=== PATIENT | male | born 1940 | race Caucasian/White ===

== ENCOUNTER 2016-10-02 22:46 | Observation (INO) | payer MEDICARE, MEDICAID ==
[2016-10-02 22:46] VITALS: BMI 28.3
[2016-10-02 23:42] LABS: BASO # 0.1 K/uL (0.0-0.2); BASO % 1.3 % (0.0-2.0); EOS # 0.2 K/uL (0.0-0.7); EOS % 2.2 % (0.0-4.0); HEMATOCRIT 45.7 % (35.0-51.0); LYMPH # 1.7 K/uL (1.0-4.3); LYMPH % 24.1 % (20.0-40.0); MEAN CELL VOLUME 90.2 fL (80.0-94.0); MEAN CORPUSCULAR HGB CONC 33.3 g/dL (33.0-37.0); MEAN PLATELET VOLUME 9.3 fL (7.2-11.7); MONO # 0.5 K/uL (0.0-0.8); MONO % 7.5 % (0.0-10.0); NRBC % 0.1 % (0.0-2.0); RED CELL DISTRIBUTION WIDTH 14.2 % (11.5-14.5)
[2016-10-02 23:50] LABS: CHLORIDE 94 mmol/L (98-107); POTASSIUM 4.4 mmol/L (3.6-5.2); SODIUM 130 mmol/L (132-148)
[2016-10-02 23:52] LABS: ALB/GLOB RATIO 1.4 (1.0-2.1); AST/SGOT 35 U/L (17-59); BILIRUBIN,TOTAL 0.9 mg/dL (0.2-1.3); CARBON DIOXIDE 20 mmol/L (22-30); GFR AFRICAN-AMERICAN > 60; TOTAL PROTEIN 7.2 g/dL (6.3-8.3)
[2016-10-02 23:53] LABS: ALKALINE PHOSPHATASE 61 U/L (38-126); ALT/SGPT 27 U/L (21-72); BLOOD UREA NITROGEN 9 mg/dL (9-20); CALCIUM 8.5 mg/dl (8.6-10.4); GLUCOSE,RANDOM 115 mg/dL (75-110)
--- NOTE | 2016-10-03 00:08 | C.PDOC ---
History Of Present Illness A 76 y/o M presents to the ER for a seizure that occurred today. Patient was at home where he loss his balanced and fell from a standing position with a contusion to left face. Then had a 5 min brief seizure with normal post ictal. EMS arrived and gave Ativan 2mg IV. Denies fever, chills, visual changes, weakness, numbness, or any other complaints. Time Seen by Provider: 10/02/16 23:23 Chief Complaint (Nursing): Seizure History Per: Patient History/Exam Limitations: no limitations Recent Seizure Activity Began: Just Before Arrival Number Of Seizures: One Length Of Seizures (Duration): Unknown (5min) Quality Of Seizure: Generalized Precipitating Factor(s): Recent Head Trauma (Fell and hit his head) Associated Symptoms: Injury As A Result Of Seizure Activity Post-ictal Period: Duration In Mins: (5min) Severity: Mild Recent travel outside of the [place]: No Additional History Per: Patient Past Medical History Reviewed: Historical Data, Nursing Documentation, Vital Signs Vital Signs: Last Vital Signs Temp Pulse 116 H 10/02/16 23:00 Resp 20 10/02/16 23:00 BP 123/88 10/02/16 23:00 Pulse Ox 100 10/03/16 01:16 - Medical History PMH: CVA, Gastritis, HTN, Hypercholesterolemia, Seizures, TIA Denies: Dementia, Chronic Kidney Disease Family History: States: Unknown Family Hx - Social History Hx Tobacco Use: No Hx Alcohol Use: No Hx Substance Use: No - Immunization History Hx Tetanus Toxoid Vaccination: No Hx Influenza Vaccination: No Hx Pneumococcal Vaccination: No Review Of Systems Except As Marked, All Systems Reviewed And Found Negative. Constitutional: Negative for: Fever, Chills Eyes: Negative for: Vision Change Skin: Positive for: Bruising (Contusions to the left face) Neurological: Positive for: Seizures. Negative for: Weakness, Numbness Physical Exam - Physical Exam Appears: Non-toxic, No Acute Distress Skin: Warm, Dry Head: Normacephalic, Abrasion (Small contusions to the left maxillary process) Eye(s): bilateral: Normal Inspection, PERRL, EOMI Cardiovascular: Rhythm Regular Respiratory: Normal Breath Sounds, No Rales, No Rhonchi, No Wheezing Neurological/Psych: Oriented x3, Normal Speech, Normal Cognition, Normal Cranial Nerves, Normal Motor, Normal Sensation, Other (No focal deficit) ED Course And Treatment - Laboratory Results Result Diagrams: 10/02/16 23:36 10/02/16 23:36 Lab Interpretation: Abnormal (mild hyponatremia) O2 Sat by Pulse Oximetry: 100 (RA) Pulse Ox Interpretation: Normal - Radiology CXR: Interpreted by Me CXR Interpretation: Yes: No Acute Disease - Other Rad head CT X-Ray: Interpreted by Me, Read By Radiologist (no acute findings) max/face X-Ray: Read By Radiologist (no acute findings/fx's) Reevaluation Time: 00:52 Reassessment Condition: Improved - Physician Consult Information Outcome Of Conversation: [id number]: d/w Dr. Kwan- PMD- ok to med/surg Obs Medical Decision Making Medical Decision Making: Impression: A 76 y/o M presents to the ER for a seizure that occurred today. Plans: * EKG * CXR * IV fluids * UA * NPO diet * Reassess typical seizure after a minor fall with L facial contusion Hypersomnolent vs post-ictal exacerbated by Ativan 2 mg IV by EMS/Paramedics makes for unsafe d/c as he is elderly and unstable gait, ok to Obs 00:05. Discussed case with Dr. Kwan and will admit pt. Disposition Doctor Will See Patient In The: Hospital Counseled Patient/Family Regarding: Studies Performed, Diagnosis - Disposition Disposition: HOSPITALIZED Disposition Time: 00:54 Condition: GOOD Forms: [facility] (Kyrgyz) - Clinical Impression Clinical Impression: Seizure, Fall, Facial contusion - Scribe Statement The provider has reviewed the documentation as recorded by the Ritaibanna hall All medical record entries made by the Ritaibanna were at my direction and personally dictated by me. I have reviewed the chart and agree that the record accurately reflects my personal performance of the history, physical exam, medical decision making, and the department course for this patient. I have also personally directed, reviewed, and agree with the discharge instructions and disposition.
[2016-10-03] MEDS: Sodium Chloride 0.45% 1,000 ML IV SCH ×2 (00:19→13:54)
--- NOTE | 2016-10-03 00:24 | CT ---
EXAM: CT Head Without Intravenous Contrast CLINICAL HISTORY: 76 years old, male; Pain; Headache and other: Weakness; Patient HX: 01-06-16; Additional info: Seizure after fall with l head contusion TECHNIQUE: Axial computed tomography images of the head/brain without intravenous contrast. All CT scans at this facility use one or more dose reduction techniques, viz.: automated exposure control; ma/kV adjustment per patient size (including targeted exams where dose is matched to indication; i.e. head); or iterative reconstruction technique. COMPARISON: CT - HEAD W/O CONTRAST 05/19/2015 8:55:45 PM FINDINGS: Brain: Mild atrophy. No intracranial hemorrhage. No mass. Minimal decreased attenuation within periventricular white matter. No definite edema. Ventricles: Mild dilatation occipital horn of RIGHT ventricle, stable. Bones/joints: No calvarial fracture. Mastoid air cells: No mastoid effusion. IMPRESSION: 1. No intracranial hemorrhage. 2. Nonspecific white matter changes. 3. See facial bone CT report for additional details. 4. Incidental/non-acute findings are described above.
--- NOTE | 2016-10-03 00:29 | CT ---
EXAM: CT Maxillofacial Without Intravenous Contrast CLINICAL HISTORY: 76 years old, male; Pain; Face pain and headache; Additional info: L max ? , fall from standing TECHNIQUE: Axial computed tomography images of the face without intravenous contrast. All CT scans at this facility use one or more dose reduction techniques, viz.: automated exposure control; ma/kV adjustment per patient size (including targeted exams where dose is matched to indication; i.e. head); or iterative reconstruction technique. Coronal and sagittal reformatted images were created and reviewed. COMPARISON: CT - HEAD W/O CONTRAST 05/19/2015 8:55:45 PM FINDINGS: Bones/joints: Degenerative changes of cervical spine. No acute fracture. Soft tissues: LEFT maxillary soft tissue swelling. Orbits: Unremarkable as visualized. Sinuses: Scattered minimal mucosal thickening of ethmoid sinuses. Mild focal mucosal thickening/retention cysts of maxillary sinuses. No air-fluid levels. IMPRESSION: 1. No fracture. 2. Incidental/non-acute findings are described above.
[2016-10-03] MEDS ORDERED: Sodium Chloride 0.45% 1,000 ML IV ONE (00:41)
[2016-10-03 03:05] LABS: RBC URINE 3 /hpf (0-3); URINE BILIRUBIN NEGATIVE (NEGATIVE); URINE BLOOD TRACE (NEGATIVE); URINE COLOR Yellow (YELLOW); URINE GLUCOSE (UA) NORMAL (Normal); URINE KETONE NEGATIVE (NEGATIVE); URINE LEUKOCYTE ESTERASE NEG Leu/uL (Negative); URINE PROTEIN NEGATIVE (NEGATIVE); URINE UROBILINOGEN NORMAL mg/dL (0.2-1.0); WBC URINE 1 /hpf (0-5)
--- NOTE | 2016-10-03 08:12 | RAD ---
PROCEDURE: CHEST RADIOGRAPH, 1 VIEW HISTORY: Seizure COMPARISON: Comparison is made to 01/06/2016 FINDINGS: LUNGS: Left lung base small heterogeneous opacity may represent atelectasis. Otherwise no significant interval change. PLEURA: No pneumothorax or pleural fluid seen. CARDIOVASCULAR: Normal. OSSEOUS STRUCTURES: No significant abnormalities. VISUALIZED UPPER ABDOMEN: Normal. OTHER FINDINGS: None. IMPRESSION: Left lung base opacity may represent atelectasis. Otherwise no interval change since the previous exam.
--- NOTE | 2016-10-03 08:42 | CP.PCM.CON ---
History of Present Illness - History of Present Illness History of Present Illness: CONSULT DICTATED BREAK THROUGH SEIZURES ADDED LAMICTAL ON SLOW TITRATION KEEP KEPPRA SAME DOSE NOW. DISCUSSED WITH HIS FAMILY IN DETAIL IF CLINICALLY STABLE DISCHARGE HIM AN DI WILL FOLLOW HIM AN OP I WILL DO AMBULATORY VIDEO EEG AND TITRATE THE MEDICATION Past Patient History - Infectious Disease Hx of Infectious Diseases: None - Tetanus Immunizations Tetanus Immunization: Unknown - Past Medical History & Family History Past Medical History?: Yes - Past Social History Smoking Status: Former Smoker - CARDIAC Hx Hypercholesterolemia: Yes Hx Hypertension: Yes - PULMONARY Hx Respiratory Disorders: No - NEUROLOGICAL Hx Dementia: No Hx Seizures: Yes Hx Transient Ischemic Attacks (TIA): Yes - HEENT Hx HEENT Problems: No - RENAL Hx Chronic Kidney Disease: No - ENDOCRINE/METABOLIC Hx Endocrine Disorders: No - HEMATOLOGICAL/ONCOLOGICAL Hx Blood Disorders: No - INTEGUMENTARY Hx Dermatological Problems: No - MUSCULOSKELETAL/RHEUMATOLOGICAL Hx Musculoskeletal Disorders: Yes Hx Falls: No - GASTROINTESTINAL Hx Gastritis: Yes - GENITOURINARY/GYNECOLOGICAL Hx Genitourinary Disorders: No - PSYCHIATRIC Hx Substance Use: No - SURGICAL HISTORY Hx Surgeries: No - ANESTHESIA Hx Anesthesia: No Meds Allergies/Adverse Reactions: Allergies Allergy/AdvReac Type Severity Reaction Status Date / Time No Known Allergies Allergy Verified 01/06/16 16:46 - Medications Medications: Current Medications Sodium Chloride (Sodium Chloride 0.45%) 1,000 mls @ 80 mls/hr IV .[id number] [facility] Last Admin: 10/03/16 00:19 Dose: 80 mls/hr Lamotrigine (Lamictal) 25 mg PO BID [facility] Results - Vital Signs Recent Vital Signs: Last Vital Signs Temp 97.7 F 10/03/16 08:04 Pulse 71 10/03/16 08:04 Resp 20 10/03/16 08:04 BP 116/73 10/03/16 08:04 Pulse Ox 95 10/03/16 08:04 - Labs Result Diagrams: 10/02/16 23:36 10/02/16 23:36
--- NOTE | 2016-10-03 13:44 | CP.PCM.HP ---
History of Present Illness - History of Present Illness History of Present Illness: COMPREHENSIVE HISTORY & PHYSICAL EXAM HPI A 76 y/o M presents to the ER for a seizure that occurred today. Patient was at home where he loss his balanced and fell from a standing position with a contusion to left face. Then had a 5 min brief seizure with normal post ictal. EMS arrived and gave Ativan 2mg IV. Denies fever, chills, visual changes, weakness, numbness, or any other complaints. PAST HIST. SEIZURES AND HTN PERSONAL HIST: Smoking. N Alcohol. N Allergy N Travel_- . FAMILY HIST : ROS : Constitutional: Negative for weight change, chills, night sweats Eyes: Negative for redness, swelling, itching, discharge, vision changes, blurry vision, double vision, glaucoma, cataracts, Ears: Negative for hearing loss, ringing, , tinnitus, vertigo Nose: Negative for rhinorrhea, stuffiness, sniffing, itching, postnasal drip, discoloration, nasal congestion and epistaxis. Throat: Negative for throat clearing, sore throat, hoarseness, difficulty swallowing and difficulty speaking. Respiratory: Negative for cough, , sputum production, chest tightness, wheezing, pleuritic chest pain ,daytime somnolence, chronic cough, hemoptysis, snoring at night, Cardiovascular: Negative for chest pain, palpitations, orthopnea, PND, Edema of legs, leg cramps, angina, claudication, , irregular heartbeat, Neurology: Negative for irritability, muscle weakness, numbness and tingling, seizures, tremors, migraines, slurred speech, syncope, memory loss, mood changes , recurrent headaches Gastrointestinal: Negative for difficulty swallowing, diarrhea, constipation, black stools, rectal bleeding, nausea, flatulence, reflux, poor appetite, changes in bowel habits, abdominal pain Genitourinary: Negative for frequent urination, hematuria, discharge, incontinence, urinary retention, frequent UTI, Psychiatric: Negative for depression, anxiety/panic, suicidal tendencies, Musculoskeletal: Negative for swollen joints, back pain, , neck pain, morning stiffness of joints, . Skin: Negative for rash, ulcers, itching, dry skin and pigmented lesions. P/E: Constitutional: Appears stated age and in no apparent distress. Head: Normocephalic. Ears: External ear canals patent without inflammation. Tympanic membranes intact with normal light reflex and landmark. Eyes: Pupils are central, bilaterally equal, symmetrical and reacts to light with normal movements and no icterus or pallor. Nose: External nares are patent. Mucosa is pink Mouth-Throat: Good general appearance and condition. No post-pharyngeal/oropharyngeal erythema and tonsillar hypertrophy. Good dental hygiene. Neck-Lymphatic: Neck is supple with normal ROM, no thyromegaly, lymph nodes or masses. JVD is normal with no carotid bruit. Lungs: Clear to percussion and auscultation with bilateral normal air entry. Cardiovascular: S1 and S2 are normal with no murmurs, gallops and rub. GI Exam: No hepatomegaly. Abdomen is soft and non-tender. No Organomegaly , masses or hernias are evident and bowel sounds are normal and active. Neurology: Higher function and all cranial nerves intact, with no gross motor or sensory deficit. Superficial and deep reflexes are normal with downwards planters. No cerebellar deficit with normal gait. Musculoskeletal: No tender spots with normal curvature of the spine with no swelling or restricted ROM of the small and large joints. Extremities: Homans sign absent. Intact pulses with no pitting edema, calf tenderness or skin color changes. Skin: No rash, eruptions or abnormal skin pigmentation LAB/RADIOLOGY: ASSESMENT : RECURRENT BREAK THROGH SEAIZURES HTN PLAN: SEE ORDERS Present on Admission - Present on Admission Any Indicators Present on Admission: No Past Patient History - Infectious Disease Hx of Infectious Diseases: None - Tetanus Immunizations Tetanus Immunization: Unknown - Past Medical History & Family History Past Medical History?: Yes - Past Social History Smoking Status: Former Smoker - CARDIAC Hx Hypercholesterolemia: Yes Hx Hypertension: Yes - PULMONARY Hx Respiratory Disorders: No - NEUROLOGICAL Hx Dementia: No Hx Seizures: Yes Hx Transient Ischemic Attacks (TIA): Yes - HEENT Hx HEENT Problems: No - RENAL Hx Chronic Kidney Disease: No - ENDOCRINE/METABOLIC Hx Endocrine Disorders: No - HEMATOLOGICAL/ONCOLOGICAL Hx Blood Disorders: No - INTEGUMENTARY Hx Dermatological Problems: No - MUSCULOSKELETAL/RHEUMATOLOGICAL Hx Musculoskeletal Disorders: Yes Hx Falls: No - GASTROINTESTINAL Hx Gastritis: Yes - GENITOURINARY/GYNECOLOGICAL Hx Genitourinary Disorders: No - PSYCHIATRIC Hx Substance Use: No - SURGICAL HISTORY Hx Surgeries: No - ANESTHESIA Hx Anesthesia: No Meds Allergies/Adverse Reactions: Allergies Allergy/AdvReac Type Severity Reaction Status Date / Time No Known Allergies Allergy Verified 01/06/16 16:46 Results - Vital Signs Recent Vital Signs: Last Vital Signs Temp 97.7 F 10/03/16 08:04 Pulse 86 10/03/16 10:09 Resp 20 10/03/16 08:04 BP 122/70 10/03/16 10:09 Pulse Ox 95 10/03/16 08:04 - Labs Result Diagrams: 10/02/16 23:36 10/02/16 23:36
--- NOTE | 2016-10-03 21:21 | CON ---
NEUROLOGY CONSULTATION DATE: REASON FOR THE CONSULTATION: Seizures and history of head trauma. CHIEF COMPLAINT: The patient was brought in to [facility] Emergency Room by his family members with a history of fall at home with seizures. From a neurological point of view, I was called in to evaluate him for further management. HISTORY OF PRESENT ILLNESS: Mr. Sherley Mancia is a 76-year-old right-handed man who is known to me for his dementia related stroke and seizures in the past, had been titrated with medication Keppra, being doing well. Still he has been having recurrent seizures, at least once in four months. He recently visited [facility], had few seizures, had been just on medications. Multiple medications were added while he was in [facility]. His seizure are related to his jet lag and his emotional component. At present, he has been taking Keppra 1000 mg three times a day and seizure has been controlled. Last night, he woke up around 10 o'clock from his bed. He felt confused and he landed on the floor hitting his head on his left side. He had witnessed seizure activities from the fall. The patient was brought in to [facility]. He regained his consciousness here and he is back to his baseline the time he was brought in to the hospital. PAST MEDICAL HISTORY: Hypertension, hypercholesterol and dementia. PERSONAL HISTORY: Denies smoking or alcohol use. CURRENT MEDICATION: Losartan and rosuvastatin. REVIEW OF SYSTEMS: A 12-point systems being reviewed. From neurological point, the patient does have seizures and dementia. PHYSICAL EXAMINATION: VITAL SIGNS: Blood pressure 116/73 with mean arterial pressure of 87, respiratory rate is 16, and temperature is 97.7. NECK: Supple. No carotid bruits. HEART: Sounds are regular. CHEST: Fair air entry. EXTREMITIES: No edema in the legs. NEUROLOGIC EXAMINATION: MENTAL STATUS EXAMINATION: He is awake, alert, and oriented to person, place, and time. He is confused. He follows 1 to 2-step command. No right and left confusion with his language. CRANIAL NERVE EXAMINATION: Visual field intact. Pupils reactive to light. Extraocular movement normal. No nystagmus. No facial or sensory deficit. No facial asymmetry. Hearing is normal. MOTOR EXAMINATION: He could able to lift both upper extremities against gravity. Deep tendon reflexes are absent. Plantars are downgoing. SENSORY EXAMINATION: Grossly intact. DIAGNOSTIC DATA: CT of the head reviewed showed diffuse atrophy, not proportionate to his age and focal asymmetry over his right parieto-occipital region consistent with his old stroke and encephalomalacia. EKG normal sinus rhythm. LABORATORY DATA: Blood workup: WBC 7.4, hemoglobin 15.3, hematocrit 45.7, and platelet 161. Sodium 130, potassium 4.4, chloride of 94, bicarbonate is 90, BUN 9, creatinine is 0.8, GFR more than 60, glucose 115, and calcium 8.5. Liver functions are normal. Urine shows trace blood. CONCLUSION: Upon reviewing his history and neurological examination, Mr. Sherley Mancia has been presenting with breakthrough seizures. This is probably multifactorial. The current examination, he is back to his baseline. Considering his recurrent seizures, at this point I would like to add on lamotrigine 25 mg twice a day and the dose can be slowly increased as he tolerates, that can be done as outpatient. I would like to keep his Keppra the way he is taking at present. If the patient is medically stable, the patient can be discharged and can be followed with me as an outpatient. I would like to schedule him for ambulatory video-encephalogram that can be done as outpatient to help. The patient's condition made well. Discussed with his family members, his two sons as well as his . The patient will be followed closely while he is in the hospital. Ajit Del Valle MD
[2016-10-04 07:55] VITALS: RESP 19; TEMP 97.8; O2SAT 96
[2016-10-04 11:41] LABS: BASO % 0.8 % (0.0-2.0); EOS # 0.1 K/uL (0.0-0.7); EOS % 2.5 % (0.0-4.0); HEMATOCRIT 46.2 % (35.0-51.0); LYMPH # 1.4 K/uL (1.0-4.3); LYMPH % 24.4 % (20.0-40.0); MEAN CELL VOLUME 89.9 fL (80.0-94.0); MEAN CORPUSCULAR HEMOGLOBIN 29.7 pg (27.0-31.0); MONO # 0.6 K/uL (0.0-0.8); MONO % 9.7 % (0.0-10.0); RED CELL DISTRIBUTION WIDTH 14.4 % (11.5-14.5); WHITE BLOOD COUNT 5.8 K/uL (4.8-10.8)
[2016-10-04 11:56] LABS: CHLORIDE 98 mmol/L (98-107); POTASSIUM 4.1 mmol/L (3.6-5.2); SODIUM 135 mmol/L (132-148)
[2016-10-04 11:59] LABS: BLOOD UREA NITROGEN 7 mg/dL (9-20); CARBON DIOXIDE 28 mmol/L (22-30); GFR AFRICAN-AMERICAN > 60; GLUCOSE,RANDOM 94 mg/dL (75-110)
[2016-10-04 12:00] LABS: CALCIUM 8.8 mg/dl (8.6-10.4)
--- NOTE | 2016-10-04 12:11 | PN ---
DATE: 10/04/2016 NEUROLOGIC PROBLEM: Breakthrough seizures. Vital Signs: Blood pressure 108/76, mean arterial pressure of 84, respiratory rate 16, temperature 98.3, and pulse rate 66. The patient slept good. The patient is seen with the family members. Some discomfort in his stomach, otherwise he is normal, he feels good. Examination is unchanged to compare with my previous examination. The patient is tolerating a new added medication lamotrigine. The patient can go home with Keppra 1000 mg 3 times a day with lamotrigine 25 mg twice a day. If medically stable, the patient can be discharged. He is advised to come and see me as a followup visit for his ambulatory video electroencephalogram. At that time, I would titrate the lamotrigine to keep the therapeutic dose and probably I will bring down the dose of Keppra. When medically stable, the patient can be discharged. Ajit Del Valle MD
--- NOTE | 2016-10-04 13:41 | CP.PCM.PN ---
Subjective - Date & Time of Evaluation Date of Evaluation: 10/04/16 Time of Evaluation: 13:00 - Subjective Subjective: Pt seen today, states feels better, denies any headache, dizziness, palpitations , sob, N/V/D no further seizure activity sice admission No overnight events reported by RN seen by Dr. Del Valle, today, cleared for discharge home today from neurology stand point Objective - Vital Signs/Intake and Output Vital Signs (last 24 hours): Temp Pulse Resp BP Pulse Ox 97.8 F 74 19 107/72 96 10/04/16 07:54 10/04/16 07:54 10/04/16 07:54 10/04/16 07:54 10/04/16 07:54 Intake and Output: 10/04/16 10/04/16 06:59 18:59 Intake Total 750 Balance 750 - Medications Medications: Current Medications Lamotrigine (Lamictal) 25 mg PO BID [facility] Last Admin: 10/04/16 10:04 Dose: 25 mg Levetiracetam (Keppra) 1,000 mg PO TID [facility] Last Admin: 10/04/16 10:04 Dose: 1,000 mg Losartan Potassium (Cozaar) 25 mg PO DAILY [facility] Last Admin: 10/04/16 10:03 Dose: 25 mg Pneumococcal Polyvalent Vaccine (Pneumovax 23 Vaccine) 0.5 ml IM .ONCE ONE Stop: 10/05/16 10:46 Rosuvastatin Calcium (Crestor) 10 mg PO HS [facility] Last Admin: 10/03/16 21:44 Dose: 10 mg - Labs Labs: 10/04/16 11:30 10/04/16 11:30 - Constitutional Appears: Well, No Acute Distress - Respiratory Exam Respiratory Exam: Clear to Ausculation Bilateral, NORMAL BREATHING PATTERN - Cardiovascular Exam Cardiovascular Exam: REGULAR RHYTHM, +S1, +S2 - Neurological Exam Neurological Exam: Alert, Awake, Normal Gait, Oriented x3 Assessment and Plan - Assessment and Plan (Free Text) Assessment: A/P 76 yr old male admitted for Seizure,s/p Fall, with Facial contusion no further seizure episode since admission D/w Dr. Kwan , stable for discharge home today and f/u [facility] Dr. Blank office in 1 week Discharge plan discussed with patient and family, who understands and agrees with plan pt instructed to returns to ED/ or call Dr. Blank , if symptoms returns or any other concerning symptoms
--- NOTE | 2016-10-04 14:12 | CP.PCM.DIS ---
Provider - Provider Date of Admission: 10/03/16 00:55 Attending physician: aVnessa Kwan MD Time Spent in preparation of Discharge (in minutes): 30 Hospital Course - Lab Results Lab Results: Most Recent Lab Values WBC 5.8 K/uL (4.8-10.8) 10/04/16 11:30 RBC 5.14 Mil/uL (4.40-5.90) 10/04/16 11:30 Hgb 15.3 g/dL (12.0-18.0) 10/04/16 11:30 Hct 46.2 % (35.0-51.0) 10/04/16 11:30 MCV 89.9 fL (80.0-94.0) 10/04/16 11:30 MCH 29.7 pg (27.0-31.0) 10/04/16 11:30 MCHC 33.0 g/dL (33.0-37.0) 10/04/16 11:30 RDW 14.4 % (11.5-14.5) 10/04/16 11:30 Plt Count 160 K/uL (130-400) 10/04/16 11:30 MPV 9.0 fL (7.2-11.7) 10/04/16 11:30 Neut % (Auto) 62.6 % (50.0-75.0) 10/04/16 11:30 Lymph % (Auto) 24.4 % (20.0-40.0) 10/04/16 11:30 [place] % (Auto) 9.7 % (0.0-10.0) 10/04/16 11:30 Eos % (Auto) 2.5 % (0.0-4.0) 10/04/16 11:30 Baso % (Auto) 0.8 % (0.0-2.0) 10/04/16 11:30 Neut # 3.6 K/uL (1.8-7.0) 10/04/16 11:30 Lymph # 1.4 K/uL (1.0-4.3) 10/04/16 11:30 [place] # 0.6 K/uL (0.0-0.8) 10/04/16 11:30 Eos # 0.1 K/uL (0.0-0.7) 10/04/16 11:30 Baso # 0.0 K/uL (0.0-0.2) 10/04/16 11:30 Sodium 135 mmol/L (132-148) 10/04/16 11:30 Potassium 4.1 mmol/L (3.6-5.2) 10/04/16 11:30 Chloride 98 mmol/L (98-107) 10/04/16 11:30 Carbon Dioxide 28 mmol/L (22-30) 10/04/16 11:30 Anion Gap 13 (10-20) 10/04/16 11:30 BUN 7 mg/dL (9-20) L 10/04/16 11:30 Creatinine 0.8 MG/DL (0.8-1.5) 10/04/16 11:30 Est GFR ( Amer) > 60 10/04/16 11:30 Est GFR (Non-Af Amer) > 60 10/04/16 11:30 POC Glucose (mg/dL) 104 mg/dL (65-110) 10/04/16 11:40 Random Glucose 94 mg/dL (75-110) 10/04/16 11:30 Calcium 8.8 mg/dl (8.6-10.4) 10/04/16 11:30 Total Bilirubin 0.9 mg/dL (0.2-1.3) 10/02/16 23:36 AST 35 U/L (17-59) 10/02/16 23:36 ALT 27 U/L (21-72) 10/02/16 23:36 Alkaline Phosphatase 61 U/L (38-126) 10/02/16 23:36 Total Creatine Kinase 114 U/L (55-170) 10/02/16 23:36 Total Protein 7.2 g/dL (6.3-8.3) 10/02/16 23:36 Albumin 4.2 g/dL (3.5-5.0) 10/02/16 23:36 Globulin 3.1 gm/dL (2.2-3.9) 10/02/16 23:36 Albumin/Globulin Ratio 1.4 (1.0-2.1) 10/02/16 23:36 Urine Color Yellow (YELLOW) 10/02/16 23:31 Urine Clarity Clear (Clear) 10/02/16 23:31 Urine pH 6.0 (5.0-8.0) 10/02/16 23:31 Ur Specific [place] 1.011 (1.003-1.030) 10/02/16 23:31 Urine Protein Negative mg/dL (NEGATIVE) 10/02/16 23:31 Urine Glucose (UA) Normal mg/dL (Normal) 10/02/16 23:31 Urine Ketones Negative mg/dL (NEGATIVE) 10/02/16 23:31 Urine Blood Trace (NEGATIVE) H 10/02/16 23:31 Urine Nitrate Negative (NEGATIVE) 10/02/16 23: Urine Bilirubin Negative (NEGATIVE) 10/02/16 23:31 Urine Urobilinogen Normal mg/dL (0.2-1.0) 10/02/16 23: Ur Leukocyte Esterase Neg Pau/uL (Negative) 10/02/16 23:31 Urine WBC (Auto) 1 /hpf (0-5) 10/02/16 23: Urine RBC (Auto) 3 /hpf (0-3) 10/02/16 23:31 - Hospital Course Hospital Course: 76 y/o M presents to the ER for a seizure that occurred today. Patient was at home where he loss his balanced and fell from a standing position with a contusion to left face. Then had a 5 min brief seizure with normal post ictal. EMS arrived and gave Ativan 2mg IV. Denies fever, chills, visual changes, weakness, numbness, or any other complaints. NEUROLOGY WAS CONSULTED ADJUSTEMENT OF ANTSEIZURES MEDICATION DONE PT STABLE D/C HOME PER NEUROLOGY Discharge Plan - Discharge Medications Prescriptions: Losartan [Cozaar] 25 mg PO DAILY #30 tab Rosuvastatin Calcium [Crestor] 10 mg PO HS #30 tab levETIRAcetam [Keppra] 1,000 mg PO BID #60 tab lamoTRIgine [Lamictal] 25 mg PO BID #60 tab - Follow Up Plan Condition: GOOD Disposition: HOME/ ROUTINE Additional Instructions: Please f/u with Dr. Blank office in 1 week Please f/u with Dr. Del Valle office in 1 week- call for appointment Please bead picker medication from [facility]
[2016-10-04] MEDS ORDERED: Pneumococcal 23-Valent Vaccine IM ONE (14:15)
[2016-10-04 16:55] VITALS: BP 117/74; PULSE 72
[2016-10-05] MEDS ORDERED: Pneumococcal 23-Valent Vaccine IM ONE (10:45)
--- NOTE | 2016-10-06 18:20 | CARD ---
APPROVED REPORT EKG Measurement Heart [id number] VT [id number] <Conclusion> Normal sinus rhythm Normal ECG
== END 2016-10-04 15:40 | disposition home or self-care (01) ==
LOC: C.ER 22:46 → C.9E 10-03 00:55 → C.5T 10-03 07:20
PROVIDERS: ADMIT Internal Medicine Cardiovascular Disease; ATTEND Internal Medicine Cardiovascular Disease
DX: G40.909 Epilepsy, unspecified, not intractable, without status epilepticus (principal); I10 Essential (primary) hypertension; E78.00 Pure hypercholesterolemia, unspecified; F03.90 Unspecified dementia, unspecified severity, without behavioral disturbance, psychotic disturbance, mood disturbance, and anxiety; S00.83XA Contusion of other part of head, initial encounter; W18.30XA Fall on same level, unspecified, initial encounter; Z86.73 Personal history of transient ischemic attack (TIA), and cerebral infarction without residual deficits; Z87.891 Personal history of nicotine dependence; Z23 Encounter for immunization
CPT/HCPCS: 36415; 70450; 70486; 71010; 80048; 80053; 81001; 82550; 82948; 85025; 90732; 97163; 99285; G0009; G0378; G8978; G8979; J7030

== ENCOUNTER 2017-03-24 10:55 | Inpatient (IN) | payer MEDICARE, MEDICAID ==
[2017-03-24 11:01] VITALS: BMI 24.2
--- NOTE | 2017-03-24 11:01 | C.PDOC ---
History Of Present Illness 76 year old male in status epi [place] is brought to the ED by EMS for multiple seizures since 08:00 this morning. Per EMS, patient did not improve after initial versed, patient had an episode of Vtach as well. Attempted to intubate the patient 3 times without success, no stable on mark tube status post amiodarone, ativan and rocuronium. Further history is unable to be obtained due to patient's clinical condition. LIMITED DUE TO CLIN COND S/P STATUS EPI [place]. MULT SZ SINCE 0800. NO IMPROVE W INITIAL VERSED. PT HAD EPISODE VTACH PER EMS. INTUB ATTEMPT X 3 WO SUCCESS, NOW STABLE ON MARK TUBE. S/ P AMIODARONE, ATIVAN, ROCURONIUM ROS UTO EXAM BAGGING IN PROGRESS HEENT ATRAUM LUNGS CTA B/L W BAGGING NEURO NO ACTIVE MOVEMENT, NO ACTIVE SEIZURE ACTIVITY. CV RRR History Per: EMS History/Exam Limitations: clinical condition Recent Seizure Activity Began: Just Before Arrival Number Of Seizures: Multiple Length Of Seizures (Duration): Unknown Quality Of Seizure: Generalized Severity: Mild Recent travel outside of the [place]: No Additional History Per: EMS Past Medical History Reviewed: Historical Data, Nursing Documentation, Vital Signs Vital Signs: Last Vital Signs Temp 96.9 F L 03/24/17 11:00 Pulse 98 H 03/24/17 11:45 Resp 18 03/24/17 11:45 BP 155/82 H 03/24/17 11:45 Pulse Ox 100 03/24/17 12:16 - Medical History PMH: CVA, Gastritis, HTN, Hypercholesterolemia, Seizures, TIA Denies: Dementia, Chronic Kidney Disease Surgical History: No Surg Hx Family History: States: Unknown Family Hx - Social History Hx Tobacco Use: No Hx Alcohol Use: No Hx Substance Use: No - Immunization History Hx Tetanus Toxoid Vaccination: No Hx Influenza Vaccination: No Hx Pneumococcal Vaccination: No Review Of Systems Review Of Systems: ROS cannot be obtained secondary to pt's inabilty to answer questions. Physical Exam - Physical Exam Appears: Non-toxic, Other (Bagging in progress) Skin: Normal Color, Warm, Dry Head: Atraumatic, Normacephalic Nose: No Discharge, No Deformity Oral Mucosa: Moist Neck: Normal ROM, Supple Chest: Symmetrical Cardiovascular: Rhythm Regular, No Murmur Respiratory: Normal Breath Sounds (with bagging ), No Rales, No Rhonchi, No Wheezing Gastrointestinal/Abdominal: Soft, No Tenderness, No Guarding, No Rebound Extremity: Normal ROM, No Pedal Edema, No Deformity, No Swelling Neurological/Psych: No Response To Commands, Other (no active movement, no active seizure activity) ED Course And Treatment - Laboratory Results Result Diagrams: 03/24/17 11:54 03/24/17 11:16 ECG: Interpreted By Me, Viewed By Me ECG Rhythm: Sinus Tachycardia Rate From EC O2 Sat by Pulse Oximetry: 100 - Radiology CXR: Interpreted by Me, Viewed By Me CXR Interpretation: Yes: Other (Post second intubation, pacification right upper lobe compared to previous one 02/26/16. ET at clavicle heads) Progress - Re-Evaluation Re-evaluation Note: 03/24/17 10:55 D/W ANESTHESIA AWARE OF ER FINDINGS WILL EVAL IN ER 03/24/17 11:25 SP INTUBATION BY ANESTHESIA 03/24/17 11:25 CALLED TO BEDSIDE BY RN FOR RAPID DESAT. 20% RA BAGGING IN PROGRESS. +GASTRIC BUBBLE. NO IMPROVE W TUBE READJUST. ETT REMOVED BY ME, ORAL AIRWAY PLACED AND BAGGING CONTINUED. 03/24/17 11:35 100% W BVM. ANESTHESIA @ BEDSIDE FOR REPEAT INTUBATION 03/24/17 11:59 D/W DR GALEANO C/F ICU REQUESTS CTA INSTEAD OF CT NC. ACCEPTS FOR ICU 03/24/17 12:17 D/W DR KWAN C/F PMD AWARE OF ER FINDINGS WILL ADMIT. PENDING CT HEAD AND CTA - Data Reviewed Data Reviewed: Lab, Diagnostic imaging, EKG, Old records - Critical Care Citical Care: Excluding Proc Time Critical Care Time: 120 minutes - Continuity of Care Discussed patient case with:: Family-HIPPA compliant Discussed pt. case with computing consultant/specialty: Anesthesiology, Pulmonary/Crit. Care Medical Decision Making Medical Decision Making: Impression: SP multiple seizures, intubated Plan: * ABG * CT chest * CT head * EKG * Labs * CXR * Ventilator Disposition Counseled Patient/Family Regarding: Studies Performed, Diagnosis - Disposition Disposition: HOSPITALIZED Disposition Time: 12:18 Condition: SERIOUS - POA Present On Arrival: None - Clinical Impression Clinical Impression: Ventricular tachycardia, Status epilepticus, Respiratory failure - Scribe Statement The provider has reviewed the documentation as recorded by the Scribe Tyron Myers All medical record entries made by the Scribe were at my direction and personally dictated by me. I have reviewed the chart and agree that the record accurately reflects my personal performance of the history, physical exam, medical decision making, and the department course for this patient. I have also personally directed, reviewed, and agree with the discharge instructions and disposition. Decision To Admit - Pt Status Changed To: Hospital Disposition Of: Inpatient - Admit Certification Admit to Inpatient:: After my assessment, the patient will require hospitalization for at least two midnights. This is because of the severity of symptoms shown, intensity of services needed, and/or the medical risk in this patient being treated as an outpatient. - InPatient: Physician Admission Certification: I certify that this patient requires 2 or more midnights of care for the following reason:: SEENOTE - . Bed Request Type: ICU Admitting Physician: Vanessa Kwan Patient Diagnosis: Ventricular tachycardia, Status epilepticus, Respiratory failure
[2017-03-24 11:27] LABS: PROTHROMBIN TIME 11.3 SECONDS (9.7-12.2)
[2017-03-24 11:31] LABS: ARTERIAL BLOOD GAS O2 SAT 82.3 % (95-98); ARTERIAL BLOOD GAS PCO2 86 mm/Hg (35-45); ARTERIAL BLOOD GAS PH 7.11 (7.35-7.45); ARTERIAL BLOOD GAS PO2 55 mm/Hg (80-100); ARTERIAL BLOOD GAS TCO2 29.9 mmol/L (22-28)
[2017-03-24 11:31] LABS: ALB/GLOB RATIO 1.4 (1.0-2.1); ALBUMIN 4.2 g/dL (3.5-5.0); CALCIUM 8.2 mg/dl (8.6-10.4); GFR AFRICAN-AMERICAN > 60; GFR NON-AFRICAN AMERICAN > 60
[2017-03-24 11:33] LABS: ALT/SGPT 25 U/L (21-72); AST/SGOT 24 U/L (17-59); BLOOD UREA NITROGEN 9 mg/dL (9-20)
[2017-03-24 11:58] LABS: ABG ALLEN TEST POS; ARTERIAL BLOOD GAS HCO3 20.3 mmol/L (21-28); ARTERIAL BLOOD GAS O2 SAT 98.1 % (95-98); ARTERIAL BLOOD GAS PCO2 49 mm/Hg (35-45); ARTERIAL BLOOD GAS PH 7.25 (7.35-7.45); ARTERIAL BLOOD GAS PO2 142 mm/Hg (80-100)
[2017-03-24 12:01] LABS: BASO % 0.7 % (0.0-2.0); EOS % 0.5 % (0.0-4.0); HEMOGLOBIN 15.9 g/dL (12.0-18.0); LYMPH # 1.2 K/uL (1.0-4.3); MEAN CELL VOLUME 89.8 fL (80.0-94.0); MEAN CORPUSCULAR HEMOGLOBIN 30.7 pg (27.0-31.0); MEAN CORPUSCULAR HGB CONC 34.2 g/dL (33.0-37.0); MEAN PLATELET VOLUME 7.9 fL (7.2-11.7); MONO # 0.3 K/uL (0.0-0.8); NEUT # 5.2 K/uL (1.8-7.0); NEUT % 76.8 % (50.0-75.0); RBC 5.18 Mil/uL (4.40-5.90); RED CELL DISTRIBUTION WIDTH 13.5 % (11.5-14.5); WHITE BLOOD COUNT 6.8 K/uL (4.8-10.8)
[2017-03-24] MEDS ORDERED: Iodixanol 320 MG/ML 100 ML BOTTLE IV ONE (12:03)
--- NOTE | 2017-03-24 12:40 | RAD ---
HISTORY: S/P Intubation COMPARISON: Comparison chest 10/03/2016 FINDINGS: In situ ETT, tip of which lies approximately 5 cm above layne. In situ NGT, tip of which overlies right parasagittal upper abdomen. LUNGS: Dense opacity right lung apex - upper lobe and right medial mid to lower jean thorax probably represents atelectasis. . Minor linear atelectasis posteromedial left lower lung field. PLEURA: No significant pleural effusion identified, no pneumothorax apparent. CARDIOVASCULAR: Normal. OSSEOUS STRUCTURES: No significant abnormalities. VISUALIZED UPPER ABDOMEN: Normal. OTHER FINDINGS: None. IMPRESSION: ETT and NGT as above. Dense opacity right apex right upper lobe and medial jean thorax consistent with atelectasis.
--- NOTE | 2017-03-24 12:56 | CT ---
PROCEDURE: CT HEAD WITHOUT CONTRAST. HISTORY: STATUS SEIZURE COMPARISON: Comparison made with CT scan and MRI of the brain dated 10/02/2016 and 05/17/2015 respectively. TECHNIQUE: Axial computed tomography images were obtained through the head/brain without intravenous contrast. Radiation dose: Total exam DLP = 1105.68 mGy-cm. This CT exam was performed using one or more of the following dose reduction techniques: Automated exposure control, adjustment of the mA and/or kV according to patient size, and/or use of iterative reconstruction technique. FINDINGS: HEMORRHAGE: No acute parenchymal, subarachnoid or extra-axial hemorrhage. BRAIN: Re- demonstrated is a encephalomalacia changes right occipito parietal watershed zone likely representing sequela of old right-sided QUILLER TENDER territory infarct. Associated ex vacuo dilatation of the right atrium/right occipital horn and to a slightly less so the right temporal horn. . There is also some mild ex vacuo dilatation of the remaining right lateral ventricle including the frontal horn These changes seen to better advantage on prior MRI Mild diffuse/confluent chronic white matter ischemic changes with multiple more discrete chronic appearing lacunar type infarcts scattered about the deep and subcortical white matter both cerebral hemispheres also less well seen on this study as compared to prior MRI VENTRICLES: As above. No obstructive hydrocephalus CALVARIUM: No acute calvarial fractures. PARANASAL SINUSES: Marked hypertrophy of the posterior nasal mucosa with fluid collected in the a posterior nasopharyngeal region. These changes result in compression of the air spaces within the posterior nasal cavity and occlusion of the posterior nasopharynx. Note that the possibility of nasal polyp should probably be excluded. . In situ ETT may contribute to these current findings. Mucosal thickening noted within the ethmoid air complex and minimal mucosal thickening left chamber sphenoid sinus. Small focal area polypoid like mucosal thickening floor right maxillary antrum. MASTOID AIR CELLS: Unremarkable as visualized. No inflammatory changes. OTHER FINDINGS: In situ ETT. IMPRESSION: No acute intracranial hemorrhage. Re- demonstrated are encephalomalacia changes right occipito parietal watershed zone likely due to chronic right QUILLER TENDER territory infarct with ex vacuo dilatation of the right lateral ventricle particularly the right atrium and occipital horn as above. . . Mild chronic white matter ischemic changes Note all these changes are seen to better advantage on prior MRI of the brain. Moderate volume loss, not withstanding the encephalomalacia changes as above. In situ ETT. Hypertrophy of the posterior nasal mucosa with collected secretions in the nasopharynx with occlusion of the posterior nasal cavity and nasopharynx
--- NOTE | 2017-03-24 13:10 | CT ---
PROCEDURE: CT Chest with contrast (Pulmonary Angiogram) HISTORY: STATUS EPI, VTACH r/o PE COMPARISON: Comparison made with chest x-ray obtained earlier same day TECHNIQUE: Axial computed tomography images were obtained of the chest in the pulmonary arterial phase of enhancement. Coronal and sagittal reformatted images were created and reviewed. Contrast dose: 100 cc Visipaque 320 contrast material Radiation dose: Total exam DLP = 548.99 mGy-cm. This CT exam was performed using one or more of the following dose reduction techniques: Automated exposure control, adjustment of the mA and/or kV according to patient size, and/or use of iterative reconstruction technique. FINDINGS: In situ ETT in good position. There is also in situ OGT PULMONARY ARTERIES: The visualized pulmonary trunk, right and left main, lobar, segmental and proximal subsegmental branches of the pulmonary arteries are well opacified with no definitive filling defects seen to suggest acute pulmonary embolus. Pulmonary trunk measures approximately 2.3 cm. There is shift of the mediastinum from left to right due to below mentioned atelectasis. AORTA: Ascending thoracic aorta measures approximately 3.7 cm and descending thoracic aorta measures approximately 2.55 cm LUNGS: Atelectasis in the right posterior lower lung field extending from the right lung apex inferiorly to the right posterior sulcus. Associated shift of the mediastinum including trachea, from left to right. There are tree-in-bud/alveolar-type infiltrate seen in the right upper and left upper lobes. . Linear atelectasis or scarring posteromedial aspect left lower lobe. . No obvious large central endoluminal tracheal lesions. PLEURAL SPACES: Unremarkable. No effusion or pneumothorax. HEART: Heart size within range of normal. No significant pericardial effusion. LYMPH NODES: No significant mediastinal or hilar adenopathy BONES, CHEST WALL: Multilevel degenerative spondylosis of the thoracic spine. There are no acute compression fractures nor retropulsed fragments. Minimal changes of bilateral gynecomastia. OTHER FINDINGS: Mildly prominent adrenal glands left more so than right IMPRESSION: No evidence of acute central pulmonary embolus. Atelectasis in the right posterior lower lung field extending from the right lung apex inferiorly to the right posterior sulcus. Associated shift of the mediastinum including trachea, from left to right. There are tree-in-bud/alveolar-type infiltrate seen in the right upper and left upper lobes. . Linear atelectasis posteromedial aspect left lower lobe. . . No obvious large central endoluminal tracheal lesions seen sheryl. In situ ETT and OGT as above
--- NOTE | 2017-03-24 14:07 | CP.PCM.CON ---
History of Present Illness - History of Present Illness History of Present Illness: Chief complaint: Status epilepticus HPI: 76-year-old male with history of dementia, CVA, seizure disorder was taking Keppra, and the last hospitalization started Lamictal. Patient was brought in by ambulance after he was continues to have seizure activities. In the field patient was not able to control with initial sedation, attempted for intubation, was unsuccessful in the field, brought into the emergency room with the Fab's tube, and in the emergency room , anesthesiology attempted to intubate, and developed a brief asystolic arrest. Prior to that patient also had an episode of ventricular tachycardia, and was resuscitated. After intubation in the emergency room patient oxygenation improved slowly. Now he is stable on ventilator, trying to pull the tube. Sedation is being administered. No focal paralysis noted On ventilator now, for support ventilation. Further history taken from the chart Past medical history: Dementia, hypertension, hypercholesterolemia, seizure disorder Personal history nonsmoker nonalcoholic Current medications noted from the list Family history noncontributory Review of system: Currently intubated on ventilator. Patient had an episode of ventricular tachycardia, also the severe bradycardic asystolic arrest after intubation. On examination: Currently patient heart rate 91 bpm, respiration 20, blood pressure 142/82, saturation is 100% Chest bilateral good air entry. Regular heart sound. Abdomen nontender, no pedal edema Patient is moving all 4 extremities. Labs reviewed in X-ray showing a right upper lung atelectasis, CT of the chest also showing the right upper lung atelectatic, most likely aspiration.no PE Further labs reviewed Nonspecific Assessment and recommendation: 76 Male with hypertension, high cholesterol ,seizure disorder ,now admitted with the status epilepticus. Concern about the ventricular tachycardia ventricular arrhythmias. Brief bradycardic arrest. Hypoxia Improving now Severe aspiration, and associated aspiration and right lung atelectasis. Continue the sedation, antibiotic, IV fluid, neurology evaluation, supportive care, sedation. Past Patient History - Infectious Disease Hx of Infectious Diseases: None - Tetanus Immunizations Tetanus Immunization: Unknown - Past Medical History & Family History Past Medical History?: Yes - Past Social History Smoking Status: Former Smoker - CARDIAC Hx Hypercholesterolemia: Yes Hx Hypertension: Yes - PULMONARY Hx Respiratory Disorders: No - NEUROLOGICAL Hx Dementia: No Hx Seizures: Yes Hx Transient Ischemic Attacks (TIA): Yes - HEENT Hx HEENT Problems: No - RENAL Hx Chronic Kidney Disease: No - ENDOCRINE/METABOLIC Hx Endocrine Disorders: No - HEMATOLOGICAL/ONCOLOGICAL Hx Blood Disorders: No - INTEGUMENTARY Hx Dermatological Problems: No - MUSCULOSKELETAL/RHEUMATOLOGICAL Hx Musculoskeletal Disorders: Yes Hx Falls: No - GASTROINTESTINAL Hx Gastritis: Yes - GENITOURINARY/GYNECOLOGICAL Hx Genitourinary Disorders: No - PSYCHIATRIC Hx Substance Use: No - SURGICAL HISTORY Hx Surgeries: No - ANESTHESIA Hx Anesthesia: No Meds Allergies/Adverse Reactions: Allergies Allergy/AdvReac Type Severity Reaction Status Date / Time No Known Allergies Allergy Verified 03/24/17 11:02 Results - Vital Signs Recent Vital Signs: Last Vital Signs Temp 96.9 F L 03/24/17 11:00 Pulse 90 03/24/17 12:45 Resp 18 03/24/17 12:45 BP 157/97 H 03/24/17 12:45 Pulse Ox 100 03/24/17 12:45 - Labs Result Diagrams: 03/24/17 11:54 03/24/17 11:16 Labs: Laboratory Results - last 24 hr 03/24/17 03/24/17 03/24/17 11:16 11:16 11:25 WBC RBC Hgb Hct MCV MCH MCHC RDW Plt Count MPV Neut % (Auto) Lymph % (Auto) [place] % (Auto) Eos % (Auto) Baso % (Auto) Neut # (Auto) Lymph # (Auto) [place] # (Auto) Eos # (Auto) Baso # (Auto) PT 11.3 INR 1.0 APTT 21 Puncture Site Rra pCO2 86 H* pO2 55 L HCO3 21.0 ABG pH 7.11 L* ABG Total CO2 29.9 H ABG O2 Saturation 82.3 L ABG Base Excess -4.3 L Booker Test N/a ABG Potassium 3.7 A-a O2 Difference 551.0 Respiratory Index 10.0 Glucose 137 H Lactate 3.3 H Vent Mode Prvc Mechanical Rate 14 FiO2 100.0 Tidal Volume 500 PEEP 5 Crit Value Called To Dr. pierson Crit Value Called By Mushtaq stout can filling room sweeper Crit Value Read Back Y Blood Gas Notified Time 1129 Sodium 132 133.0 Potassium 4.0 Chloride 96 L 99.0 Carbon Dioxide 21 L Anion Gap 19 BUN 9 Creatinine 0.8 Est GFR ( Amer) > 60 Est GFR (Non-Af Amer) > 60 Random Glucose 134 H Calcium 8.2 L Total Bilirubin 0.8 AST 24 ALT 25 Alkaline Phosphatase 42 Troponin I < 0.0120 Total Protein 7.2 Albumin 4.2 Globulin 3.1 Albumin/Globulin Ratio 1.4 Arterial Blood Potassium 3.7 03/24/17 03/24/17 11:52 11:54 WBC 6.8 RBC 5.18 Hgb 15.9 Hct 46.5 MCV 89.8 MCH 30.7 MCHC 34.2 RDW 13.5 Plt Count 188 MPV 7.9 Neut % (Auto) 76.8 H Lymph % (Auto) 17.0 L [place] % (Auto) 5.0 Eos % (Auto) 0.5 Baso % (Auto) 0.7 Neut # (Auto) 5.2 Lymph # (Auto) 1.2 [place] # (Auto) 0.3 Eos # (Auto) 0.0 Baso # (Auto) 0.0 PT INR APTT Puncture Site Rr pCO2 49 H pO2 142 H HCO3 20.3 L ABG pH 7.25 L ABG Total CO2 23.0 ABG O2 Saturation 98.1 H ABG Base Excess -6.0 L Booker Test Pos ABG Potassium 3.7 A-a O2 Difference 510.0 Respiratory Index 3.6 Glucose 174 H Lactate 2.8 H Vent Mode Mechanical Rate 16 FiO2 100.0 Tidal Volume 500 PEEP 5 Crit Value Called To Crit Value Called By Crit Value Read Back Blood Gas Notified Time Sodium 130.0 L Potassium Chloride 98.0 Carbon Dioxide Anion Gap BUN Creatinine Est GFR ( Amer) Est GFR (Non-Af Amer) Random Glucose Calcium Total Bilirubin AST ALT Alkaline Phosphatase Troponin I Total Protein Albumin Globulin Albumin/Globulin Ratio Arterial Blood Potassium 3.7
[2017-03-24] MEDS ORDERED: Propofol 10 mg/ml 1,000 MG/100 ML VIAL IV PRN (14:08)
--- NOTE | 2017-03-24 15:36 | CP.PCM.HP ---
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 Per EMS, patient did not improve after initial versed, patient had an episode of Vtach as well. Attempted to intubate the patient 3 times without success, no stable on barak tube status post amiodarone, ativan and rocuronium. Further history is unable to be obtained due to patient's clinical condition. IN ER ANESTHESIOLOGIST TRIED INTUBATION AND A TRANSIENT ASYSTOLE WITH PRIOR V TACHY RESUSCITATED AND INTUBATED AND RESPONGING PAIN AND MOVES ALL EXT Present on Admission - Present on Admission Any Indicators Present on Admission: No Review of Systems - Review of Systems Review of Systems: PT INTUBATED AND WAS NOT OBTAINED Past Patient History - Infectious Disease Hx of Infectious Diseases: None - Tetanus Immunizations Tetanus Immunization: Unknown - Past Medical History & Family History Past Medical History?: Yes - Past Social History Smoking Status: Former Smoker - CARDIAC Hx Hypercholesterolemia: Yes Hx Hypertension: Yes - PULMONARY Hx Respiratory Disorders: No - NEUROLOGICAL Hx Dementia: No Hx Seizures: Yes Hx Transient Ischemic Attacks (TIA): Yes - HEENT Hx HEENT Problems: No - RENAL Hx Chronic Kidney Disease: No - ENDOCRINE/METABOLIC Hx Endocrine Disorders: No - HEMATOLOGICAL/ONCOLOGICAL Hx Blood Disorders: No - INTEGUMENTARY Hx Dermatological Problems: No - MUSCULOSKELETAL/RHEUMATOLOGICAL Hx Musculoskeletal Disorders: Yes Hx Falls: No - GASTROINTESTINAL Hx Gastritis: Yes - GENITOURINARY/GYNECOLOGICAL Hx Genitourinary Disorders: No - PSYCHIATRIC Hx Substance Use: No - SURGICAL HISTORY Hx Surgeries: No - ANESTHESIA Hx Anesthesia: No Meds Allergies/Adverse Reactions: Allergies Allergy/AdvReac Type Severity Reaction Status Date / Time No Known Allergies Allergy Verified 03/24/17 11:02 Physical Exam - Constitutional Additional comments: INTUBATED ON WENT - Head Exam Head Exam: ATRAUMATIC - Eye Exam Eye Exam: Normal appearance - Neck Exam Neck exam: Positive for: Full Rom - Respiratory Exam Respiratory Exam: Rhonchi - Cardiovascular Exam Cardiovascular Exam: +S1, +S2, +S4 - GI/Abdominal Exam GI & Abdominal Exam: Normal Bowel Sounds, Soft. absent: Tenderness - Rectal Exam Rectal Exam: Deferred - Extremities Exam Extremities exam: Negative for: calf tenderness, pedal edema - Back Exam Back exam: absent: CVA tenderness (L), CVA tenderness (R) - Neurological Exam Neurological exam: Alert, CN II-XII Intact, Reflexes Normal Results - Vital Signs Recent Vital Signs: Last Vital Signs Temp 96.9 F L 03/24/17 11:00 Pulse 90 03/24/17 12:45 Resp 18 03/24/17 12:45 BP 157/97 H 03/24/17 12:45 Pulse Ox 100 03/24/17 12:45 - Labs Result Diagrams: 03/25/17 06:43 03/25/17 06:43 Labs: Laboratory Results - last 24 hr 03/24/17 03/24/17 03/24/17 11:16 11:16 11:25 WBC RBC Hgb Hct MCV MCH MCHC RDW Plt Count MPV Neut % (Auto) Lymph % (Auto) Harrison % (Auto) Eos % (Auto) Baso % (Auto) Neut # (Auto) Lymph # (Auto) [place] # (Auto) Eos # (Auto) Baso # (Auto) PT 11.3 INR 1.0 APTT 21 Puncture Site Rra pCO2 86 H* pO2 55 L HCO3 21.0 ABG pH 7.11 L* ABG Total CO2 29.9 H ABG O2 Saturation 82.3 L ABG Base Excess -4.3 L Booker Test N/a ABG Potassium 3.7 A-a O2 Difference 551.0 Respiratory Index 10.0 Glucose 137 H Lactate 3.3 H Vent Mode Prvc Mechanical Rate 14 FiO2 100.0 Tidal Volume 500 PEEP 5 Crit Value Called To Dr. 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 Crit Value Read Back Y Blood Gas Notified Time 1129 Sodium 132 133.0 Potassium 4.0 Chloride 96 L 99.0 Carbon Dioxide 21 L Anion Gap 19 BUN 9 Creatinine 0.8 Est GFR ( Amer) > 60 Est GFR (Non-Af Amer) > 60 Random Glucose 134 H Calcium 8.2 L Total Bilirubin 0.8 AST 24 ALT 25 Alkaline Phosphatase 42 Troponin I < 0.0120 Total Protein 7.2 Albumin 4.2 Globulin 3.1 Albumin/Globulin Ratio 1.4 Arterial Blood Potassium 3.7 03/24/17 03/24/17 11:52 11:54 WBC 6.8 RBC 5.18 Hgb 15.9 Hct 46.5 MCV 89.8 MCH 30.7 MCHC 34.2 RDW 13.5 Plt Count 188 MPV 7.9 Neut % (Auto) 76.8 H Lymph % (Auto) 17.0 L Harrison % (Auto) 5.0 Eos % (Auto) 0.5 Baso % (Auto) 0.7 Neut # (Auto) 5.2 Lymph # (Auto) 1.2 Harrison # (Auto) 0.3 Eos # (Auto) 0.0 Baso # (Auto) 0.0 PT INR APTT Puncture Site Rr pCO2 49 H pO2 142 H HCO3 20.3 L ABG pH 7.25 L ABG Total CO2 23.0 ABG O2 Saturation 98.1 H ABG Base Excess -6.0 L Booker Test Pos ABG Potassium 3.7 A-a O2 Difference 510.0 Respiratory Index 3.6 Glucose 174 H Lactate 2.8 H Vent Mode Mechanical Rate 16 FiO2 100.0 Tidal Volume 500 PEEP 5 Crit Value Called To Crit Value Called By Crit Value Read Back Blood Gas Notified Time Sodium 130.0 L Potassium Chloride 98.0 Carbon Dioxide Anion Gap BUN Creatinine Est GFR ( Amer) Est GFR (Non-Af Amer) Random Glucose Calcium Total Bilirubin AST ALT Alkaline Phosphatase Troponin I Total Protein Albumin Globulin Albumin/Globulin Ratio Arterial Blood Potassium 3.7 Assessment & Plan (1) Respiratory failure Status: Acute Comment: ICU MANAGEMENT (2) Status epilepticus Status: Acute Comment: YANNI (3) Ventricular tachycardia Status: Acute Comment: TRANSIET , NO FPC TREATMENT (4) Aspiration pneumonia Status: Acute Comment: IV AB /ID EVAL
[2017-03-24] MEDS: Piperacill/Tazo 2.25gm in Dex 2.25 GM/50 ML BAG IVPB SCH ×2 (16:40→21:04)
[2017-03-24] MEDS: Sodium Chloride 0.9% 1,000 ML IV SCH (16:41)
[2017-03-24] MEDS ORDERED: Sodium Chloride 0.9% 500 ML IV ONE (17:31)
[2017-03-24] MEDS: Albuterol-Ipratrop 3 mg / 0.5 (3 ml) UD INH SCH (20:22)
[2017-03-25] MEDS: Albuterol-Ipratrop 3 mg / 0.5 (3 ml) UD INH SCH ×4 (01:01→19:20)
[2017-03-25] MEDS: Sodium Chloride 0.9% 1,000 ML IV SCH ×3 (01:13→21:49)
[2017-03-25] MEDS: Piperacill/Tazo 2.25gm in Dex 2.25 GM/50 ML BAG IVPB SCH ×3 (02:53→16:28)
[2017-03-25 06:33] LABS: ABG ALLEN TEST POS; ARTERIAL BLOOD GAS HCO3 23.1 mmol/L (21-28); ARTERIAL BLOOD GAS HEMOGLOBIN 12.3 g/dL (11.7-17.4); ARTERIAL BLOOD GAS O2 SAT 98.3 % (95-98); ARTERIAL BLOOD GAS PCO2 26 mm/Hg (35-45); ARTERIAL BLOOD GAS PH 7.49 (7.35-7.45); ARTERIAL BLOOD GAS PO2 379 mm/Hg (80-100); ARTERIAL BLOOD GAS TCO2 20.6 mmol/L (22-28)
[2017-03-25 06:49] LABS: BASO % 0.4 % (0.0-2.0); EOS % 0.1 % (0.0-4.0); HEMOGLOBIN 12.8 g/dL (12.0-18.0); LYMPH # 0.7 K/uL (1.0-4.3); LYMPH % 10.7 % (20.0-40.0); MEAN CORPUSCULAR HEMOGLOBIN 30.7 pg (27.0-31.0); MEAN CORPUSCULAR HGB CONC 34.5 g/dL (33.0-37.0); MEAN PLATELET VOLUME 8.9 fL (7.2-11.7); MONO # 0.5 K/uL (0.0-0.8); MONO % 6.7 % (0.0-10.0); NEUT # 5.7 K/uL (1.8-7.0); NEUT % 82.1 % (50.0-75.0); RBC 4.18 Mil/uL (4.40-5.90); RED CELL DISTRIBUTION WIDTH 13.4 % (11.5-14.5)
[2017-03-25 07:13] LABS: ALB/GLOB RATIO 1.1 (1.0-2.1); ALBUMIN 2.9 g/dL (3.5-5.0); ALT/SGPT 23 U/L (21-72); AST/SGOT 32 U/L (17-59); BLOOD UREA NITROGEN 11 mg/dL (9-20); CALCIUM 7.4 mg/dl (8.6-10.4); GFR AFRICAN-AMERICAN > 60; GFR NON-AFRICAN AMERICAN > 60; MAGNESIUM 1.9 mg/dL (1.6-2.3)
--- NOTE | 2017-03-25 07:21 | CP.PCM.CON ---
History of Present Illness - History of Present Illness History of Present Illness: CONSULT DICTATED EPILEPSIA PARTIALIS CONTINUA POST RESP FAILURE MENTATION NORMAL LEFT LEG WEAKNESS CVA Vs EZE'S PARESISI INC LMG DOSE TO 50 MG BID WITH KEPPRA 1250 BID DISCUSSED WITH FAMILY [facility]ERS WHEN MEDICALLY STABLE EXTUBATE HIM MRI BRAIN /EEG TO BE DONE Past Patient History - Infectious Disease Hx of Infectious Diseases: None - Tetanus Immunizations Tetanus Immunization: Unknown - Past Medical History & Family History Past Medical History?: Yes - Past Social History Smoking Status: Never Smoked - CARDIAC Hx Hypercholesterolemia: Yes Hx Hypertension: Yes - PULMONARY Hx Respiratory Disorders: No - NEUROLOGICAL Hx Dementia: No Hx Seizures: Yes Hx Transient Ischemic Attacks (TIA): Yes - HEENT Hx HEENT Problems: No - RENAL Hx Chronic Kidney Disease: No - ENDOCRINE/METABOLIC Hx Endocrine Disorders: No - HEMATOLOGICAL/ONCOLOGICAL Hx Blood Disorders: No - INTEGUMENTARY Hx Dermatological Problems: No - MUSCULOSKELETAL/RHEUMATOLOGICAL Hx Falls: Yes - GASTROINTESTINAL Hx Gastritis: Yes - GENITOURINARY/GYNECOLOGICAL Hx Genitourinary Disorders: No - PSYCHIATRIC Hx Psychophysiologic Disorder: No Hx Substance Use: No - SURGICAL HISTORY Hx Surgeries: No - ANESTHESIA Hx Anesthesia: No Meds Allergies/Adverse Reactions: Allergies Allergy/AdvReac Type Severity Reaction Status Date / Time No Known Allergies Allergy Verified 03/24/17 11:02 - Medications Medications: Current Medications Albuterol/Ipratropium (Duoneb 3 Mg/0.5 Mg (3 Ml) Ud) 3 ml INH RQ6 [facility] Last Admin: 03/25/17 01:01 Dose: 3 ml Aspirin (Aspirin Chewable) 81 mg PO DAILY [facility] Heparin Sodium (Porcine) (Heparin) 5,000 units SC Q8 [facility] Last Admin: 03/25/17 06:04 Dose: 5,000 units Propofol (Diprivan) 1,000 mg in 100 mls @ 2.041 mls/hr IV .Q24H PRN; Protocol; 5 MCG/KG/MIN PRN Reason: TITRATE PER MD ORDER Last Titration: 03/24/17 17:15 Dose: 0 mcg/kg/min, 0 mls/hr Piperacillin Sod/Tazobactam Sod (Zosyn 2.25 Gm Iv Premix) 2.25 gm in 50 mls @ 100 mls/hr IVPB Q6H [facility] Last Admin: 03/25/17 02:53 Dose: 100 mls/hr Sodium Chloride (Sodium Chloride 0.9%) 1,000 mls @ 100 mls/hr IV .Q10H [facility] Last Admin: 03/25/17 01:13 Dose: Not Given Levetiracetam 1,200 mg/ Sodium (Chloride) 112 mls @ 420 mls/hr IVPB Q12H [facility] Last Admin: 03/24/17 21:47 Dose: 420 mls/hr Lamotrigine (Lamictal) 50 mg PO BID [facility] Lorazepam (Ativan) 2 mg IVP Q6H PRN PRN Reason: Anxiety Last Admin: 03/25/17 03:27 Dose: 2 mg Losartan Potassium (Cozaar) 25 mg PO DAILY [facility]EL[facility] Metoprolol Tartrate (Lopressor) 25 mg PO BID [facility] Last Admin: 03/24/17 17:30 Dose: Not Given Pantoprazole Sodium (Protonix Inj) 40 mg IVP DAILY [facility] Rosuvastatin Calcium (Crestor) 10 mg PO HS [facility] Last Admin: 03/24/17 21:47 Dose: 10 mg Results - Vital Signs Recent Vital Signs: Last Vital Signs Temp 99.6 F 03/25/17 00:00 Pulse 79 03/25/17 06:00 Resp 18 03/25/17 06:00 BP 96/59 L 03/25/17 05:47 Pulse Ox 100 03/25/17 06:00 - Labs Result Diagrams: 03/25/17 06:43 03/25/17 06:43 Labs: Laboratory Results - last 24 hr 03/24/17 03/24/17 03/24/17 11:16 11:16 11:25 WBC RBC Hgb Hct MCV MCH MCHC RDW Plt Count MPV Neut % (Auto) Lymph % (Auto) [place] % (Auto) Eos % (Auto) Baso % (Auto) Neut # (Auto) Lymph # (Auto) [place] # (Auto) Eos # (Auto) Baso # (Auto) PT 11.3 INR 1.0 APTT 21 Puncture Site Rra pCO2 86 H* pO2 55 L HCO3 21.0 ABG pH 7.11 L* ABG Total CO2 29.9 H ABG O2 Saturation 82.3 L ABG Base Excess -4.3 L ABG Hemoglobin ABG Carboxyhemoglobin POC ABG HHb (Measured) ABG Methemoglobin Booker Test N/a ABG Potassium 3.7 A-a O2 Difference 551.0 Respiratory Index 10.0 Hgb O2 Saturation Glucose 137 H Lactate 3.3 H Vent Mode Prvc Mechanical Rate 14 FiO2 100.0 Tidal Volume 500 PEEP 5 Crit Value Called To Dr. 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 Crit Value Read Back Y Blood Gas Notified Time 1129 Sodium 132 133.0 Potassium 4.0 Chloride 96 L 99.0 Carbon Dioxide 21 L Anion Gap 19 BUN 9 Creatinine 0.8 Est GFR ( Amer) > 60 Est GFR (Non-Af Amer) > 60 POC Glucose (mg/dL) Random Glucose 134 H Calcium 8.2 L Phosphorus Magnesium Total Bilirubin 0.8 AST 24 ALT 25 Alkaline Phosphatase 42 Troponin I < 0.0120 Total Protein 7.2 Albumin 4.2 Globulin 3.1 Albumin/Globulin Ratio 1.4 Arterial Blood Potassium 3.7 03/24/17 03/24/17 03/24/17 11:52 11:54 16:33 WBC 6.8 RBC 5.18 Hgb 15.9 Hct 46.5 MCV 89.8 MCH 30.7 MCHC 34.2 RDW 13.5 Plt Count 188 MPV 7.9 Neut % (Auto) 76.8 H Lymph % (Auto) 17.0 L [place] % (Auto) 5.0 Eos % (Auto) 0.5 Baso % (Auto) 0.7 Neut # (Auto) 5.2 Lymph # (Auto) 1.2 [place] # (Auto) 0.3 Eos # (Auto) 0.0 Baso # (Auto) 0.0 PT INR APTT Puncture Site Rr pCO2 49 H pO2 142 H HCO3 20.3 L ABG pH 7.25 L ABG Total CO2 23.0 ABG O2 Saturation 98.1 H ABG Base Excess -6.0 L ABG Hemoglobin ABG Carboxyhemoglobin POC ABG HHb (Measured) ABG Methemoglobin Booker Test Pos ABG Potassium 3.7 A-a O2 Difference 510.0 Respiratory Index 3.6 Hgb O2 Saturation Glucose 174 H Lactate 2.8 H Vent Mode Mechanical Rate 16 FiO2 100.0 Tidal Volume 500 PEEP 5 Crit Value Called To Crit Value Called By Crit Value Read Back Blood Gas Notified Time Sodium 130.0 L Potassium Chloride 98.0 Carbon Dioxide Anion Gap BUN Creatinine Est GFR ( Amer) Est GFR (Non-Af Amer) POC Glucose (mg/dL) 86 Random Glucose Calcium Phosphorus Magnesium Total Bilirubin AST ALT Alkaline Phosphatase Troponin I Total Protein Albumin Globulin Albumin/Globulin Ratio Arterial Blood Potassium 3.7 03/25/17 03/25/17 03/25/17 05:01 06:43 06:43 WBC 7.0 RBC 4.18 L Hgb 12.8 D Hct 37.2 MCV 89.0 MCH 30.7 MCHC 34.5 RDW 13.4 Plt Count 155 MPV 8.9 Neut % (Auto) 82.1 H Lymph % (Auto) 10.7 L [place] % (Auto) 6.7 Eos % (Auto) 0.1 Baso % (Auto) 0.4 Neut # (Auto) 5.7 Lymph # (Auto) 0.7 L [place] # (Auto) 0.5 Eos # (Auto) 0.0 Baso # (Auto) 0.0 PT INR APTT Puncture Site Rr pCO2 26 L pO2 379 H HCO3 23.1 ABG pH 7.49 H ABG Total CO2 20.6 L ABG O2 Saturation 98.3 H ABG Base Excess -2.3 L ABG Hemoglobin 12.3 ABG Carboxyhemoglobin 0.3 L POC ABG HHb (Measured) 1.7 ABG Methemoglobin 1.2 Booker Test Pos ABG Potassium A-a O2 Difference 159.0 Respiratory Index 0.4 Hgb O2 Saturation 96.8 Glucose Lactate Vent Mode Prvc Mechanical Rate 20 FiO2 80.0 Tidal Volume 500 PEEP 5 Crit Value Called To Crit Value Called By Crit Value Read Back Blood Gas Notified Time Sodium 127 L Potassium 3.5 L Chloride 99 Carbon Dioxide 20 L Anion Gap 11 BUN 11 Creatinine 0.9 Est GFR ( Amer) > 60 Est GFR (Non-Af Amer) > 60 POC Glucose (mg/dL) Random Glucose 167 H Calcium 7.4 L Phosphorus 2.2 L Magnesium 1.9 Total Bilirubin 1.4 H AST 32 ALT 23 Alkaline Phosphatase 34 L Troponin I Total Protein 5.5 L Albumin 2.9 L D Globulin 2.6 Albumin/Globulin Ratio 1.1 Arterial Blood Potassium
[2017-03-25] MEDS ORDERED: Potassium Phosphate 15 MMOLE in Sodium Chloride 0.9% 250 ML IV ONE (08:00)
--- NOTE | 2017-03-25 08:37 | RAD ---
HISTORY: pt intubated COMPARISON: 03/24/2017 FINDINGS: LUNGS: No active pulmonary disease. PLEURA: No significant pleural effusion identified, no pneumothorax apparent. CARDIOVASCULAR: NG tube and ET tube unchanged. OSSEOUS STRUCTURES: No significant abnormalities. VISUALIZED UPPER ABDOMEN: Normal. OTHER FINDINGS: None. IMPRESSION: No active disease.
[2017-03-25] MEDS: Magnesium Sulfate 1 gm in D5W 1 GM/100 ML BAG IVPB SCH ×2 (09:02→10:11)
--- NOTE | 2017-03-25 10:39 | CP.CCUPN ---
CCU Subjective - Physician Review Events Since Last Encounter (Free Text): 03/25/17 10:39 Chief complaint: Status epilepticus HPI: 76-year-old male with history of dementia, CVA, seizure disorder was taking Keppra, and the last hospitalization started Lamictal. Patient was brought in by ambulance after he was continues to have seizure activities. In the field patient was not able to control with initial sedation, attempted for intubation, was unsuccessful in the field, brought into the emergency room with the Fab's tube, and in the emergency room , anesthesiology attempted to intubate, and developed a brief asystolic arrest. Prior to that patient also had an episode of ventricular tachycardia, and was resuscitated. After intubation in the emergency room patient oxygenation improved slowly. Now he is stable on ventilator, trying to pull the tube. Sedation is being administered. No focal paralysis noted On ventilator now, for support ventilation. Further history taken from the chart Past medical history: Dementia, hypertension, hypercholesterolemia, seizure disorder Personal history nonsmoker nonalcoholic Current medications noted from the list Family history noncontributory Review of system: Currently intubated on ventilator. Patient had an episode of ventricular tachycardia, also the severe bradycardic asystolic arrest after intubation. On examination: Currently patient heart rate 91 bpm, respiration 20, blood pressure 142/82, saturation is 100% Chest bilateral good air entry. Regular heart sound. Abdomen nontender, no pedal edema Patient is moving all 4 extremities. Labs reviewed in X-ray showing a right upper lung atelectasis, CT of the chest also showing the right upper lung atelectatic, most likely aspiration.no PE Further labs reviewed Nonspecific Assessment and recommendation: 76 Male with hypertension, high cholesterol ,seizure disorder ,now admitted with the status epilepticus. Concern about the ventricular tachycardia ventricular arrhythmias. Brief bradycardic arrest. Hypoxia Improving now Severe aspiration, and associated aspiration and right lung atelectasis. Continue the sedation, antibiotic, IV fluid, neurology evaluation, supportive care, sedation. This morning: Patient is more awake and responding. X-ray of the chest improvement in the lung collapse noted. Improvement in the FiO2 noted. Start the CPAP trial. Possibly extubate this patient today stable. CCU Objective - Vital Signs / Intake & Output Vital Signs (Last 4 hours): Vital Signs Pulse Resp BP Pulse Ox 03/25/17 07:00 81 20 100 03/25/17 06:47 85 20 92/59 L 100 Intake and Output (Last 8hrs): Intake & Output 03/24/17 03/25/17 03/25/17 22:59 06:59 14:59 Intake Total 1274 800 100 Output Total 850 350 Balance 424 450 100 Weight 142 lb Intake: IV 32 Intake, IV Amount 1132 800 100 Left Forearm 282 800 100 Right Antecubital 850 Other 110 Output: Urine 850 350 Urethral (Parra) 850 350 Other: Voiding Method Indwelling Catheter # Bowel Movements 0 - Medications Active Medications: Active Medications Generic Name Dose Route Start Last Admin Trade Name Freq PRN Reason Stop Dose Admin Albuterol/Ipratropium 3 ml 03/24/17 20:00 03/25/17 07:27 Duoneb 3 Mg/0.5 Mg (3 Ml) Ud INH 3 ml RQ6 FELICIANO Administration Aspirin 81 mg 03/25/17 10:00 03/25/17 10:21 Aspirin Chewable PO 81 mg DAILY FELICIANO Administration Heparin Sodium (Porcine) 5,000 units 03/24/17 22:00 03/25/17 06:04 Heparin SC 5,000 units Q8 FELICIANO Administration Propofol 1,000 mg in 100 mls @ 2.041 mls/hr 03/24/17 14:08 03/24/17 17:15 Diprivan IV 0 mcg/kg/min .Q24H PRN 0 mls/hr TITRATE PER MD ORDER Titration Protocol 5 MCG/KG/MIN Piperacillin Sod/Tazobactam Sod 2.25 gm in 50 mls @ 100 mls/hr 03/24/17 15:00 03/25/17 10:19 Zosyn 2.25 Gm Iv Premix IVPB 100 mls/hr Q6H FELICIANO Administration Sodium Chloride 1,000 mls @ 100 mls/hr 03/24/17 14:15 03/25/17 01:13 Sodium Chloride 0.9% IV Not Given .Q10H FELICIANO Levetiracetam 1,200 mg/ Sodium 112 mls @ 420 mls/hr 03/24/17 22:00 03/25/17 10:21 Chloride IVPB 420 mls/hr Q12H FELICIANO Administration Potassium Phosphate 15 mmole/ 255 mls @ 63 mls/hr 03/25/17 08:00 03/25/17 10: 13 Sodium Chloride IV 03/25/17 12:02 63 mls/hr ONCE ONE Administration Lamotrigine 50 mg 03/25/17 10:00 03/25/17 10:20 Lamictal PO 50 mg BID FELICIANO Administration Lorazepam 2 mg 03/24/17 14:08 03/25/17 03:27 Ativan IVP 2 mg Q6H PRN Administration Anxiety Losartan Potassium 25 mg 03/25/17 10:00 Cozaar PO DAILY [facility] Metoprolol Tartrate 25 mg 03/24/17 18:00 03/24/17 17:30 Lopressor PO Not Given BID [facility] Pantoprazole Sodium 40 mg 03/25/17 10:00 03/25/17 10:20 Protonix Inj IVP 40 mg DAILY FELICIANO Administration Rosuvastatin Calcium 10 mg 03/24/17 22:00 03/24/17 21:47 Crestor PO 10 mg HS FELICIANO Administration - Patient Studies Lab Studies: Microbiology Studies 03/24/17 14:11 Urine Culture - Final Urine,Parra No Growth (<1,000 CFU/ML) 03/24/17 14:11 Gram Stain - Final Trachasp Lab Studies 03/25/17 03/25/17 03/25/17 Range/Units 06:43 06:43 05:01 WBC 7.0 (4.8-10.8) K/uL RBC 4.18 L (4.40-5.90) Mil/uL Hgb 12.8 D (12.0-18.0) g/dL Hct 37.2 (35.0-51.0) % MCV 89.0 (80.0-94.0) fL MCH 30.7 (27.0-31.0) pg MCHC 34.5 (33.0-37.0) g/dL RDW 13.4 (11.5-14.5) % Plt Count 155 (130-400) K/uL MPV 8.9 (7.2-11.7) fL Neut % (Auto) 82.1 H (50.0-75.0) % Lymph % (Auto) 10.7 L (20.0-40.0) % Chester % (Auto) 6.7 (0.0-10.0) % Eos % (Auto) 0.1 (0.0-4.0) % Baso % (Auto) 0.4 (0.0-2.0) % Neut # (Auto) 5.7 (1.8-7.0) K/uL Lymph # (Auto) 0.7 L (1.0-4.3) K/uL Chester # (Auto) 0.5 (0.0-0.8) K/uL Eos # (Auto) 0.0 (0.0-0.7) K/uL Baso # (Auto) 0.0 (0.0-0.2) K/uL PT (9.7-12.2) SECONDS INR APTT (21-34) SECONDS Puncture Site Rr pCO2 26 L (35-45) mm/Hg pO2 379 H (80-100) mm/Hg HCO3 23.1 (21-28) mmol/L ABG pH 7.49 H (7.35-7.45) ABG Total CO2 20.6 L (22-28) mmol/L ABG O2 Saturation 98.3 H (95-98) % ABG Base Excess -2.3 L (-2.0-3.0) mmol/L ABG Hemoglobin 12.3 (11.7-17.4) g/dL ABG Carboxyhemoglobin 0.3 L (0.5-1.5) % POC ABG HHb (Measured) 1.7 (0.0-5.0) % ABG Methemoglobin 1.2 (0.0-3.0) % Booker Test Pos ABG Potassium (3.6-5.2) mmol/L A-a O2 Difference 159.0 mm/Hg Respiratory Index 0.4 Hgb O2 Saturation 96.8 (95.0-98.0) % Glucose (75-110) mg/dl Lactate (0.7-2.1) mmol/L Vent Mode Prvc Mechanical Rate 20 FiO2 80.0 % Tidal Volume 500 PEEP 5 Crit Value Called To Crit Value Called By Crit Value Read Back Blood Gas Notified Time Sodium 127 L (132-148) mmol/L Potassium 3.5 L (3.6-5.2) mmol/L Chloride 99 (98-107) mmol/L Carbon Dioxide 20 L (22-30) mmol/L Anion Gap 11 (10-20) BUN 11 (9-20) mg/dL Creatinine 0.9 (0.8-1.5) mg/dL Est GFR ( Amer) > 60 Est GFR (Non-Af Amer) > 60 POC Glucose (mg/dL) (65-110) mg/dL Random Glucose 167 H (75-110) mg/dL Calcium 7.4 L (8.6-10.4) mg/dl Phosphorus 2.2 L (2.5-4.5) mg/dL Magnesium 1.9 (1.6-2.3) mg/dL Total Bilirubin 1.4 H (0.2-1.3) mg/dL AST 32 (17-59) U/L ALT 23 (21-72) U/L Alkaline Phosphatase 34 L (38-126) U/L Troponin I (0.00-0.120) ng/mL Total Protein 5.5 L (6.3-8.3) g/dL Albumin 2.9 L D (3.5-5.0) g/dL Globulin 2.6 (2.2-3.9) gm/dL Albumin/Globulin Ratio 1.1 (1.0-2.1) Arterial Blood Potassium (3.6-5.2) mmol/L 03/24/17 03/24/17 03/24/17 Range/Units 16:33 11:54 11:52 WBC 6.8 (4.8-10.8) K/uL RBC 5.18 (4.40-5.90) Mil/uL Hgb 15.9 (12.0-18.0) g/dL Hct 46.5 (35.0-51.0) % MCV 89.8 (80.0-94.0) fL MCH 30.7 (27.0-31.0) pg MCHC 34.2 (33.0-37.0) g/dL RDW 13.5 (11.5-14.5) % Plt Count 188 (130-400) K/uL MPV 7.9 (7.2-11.7) fL Neut % (Auto) 76.8 H (50.0-75.0) % Lymph % (Auto) 17.0 L (20.0-40.0) % Chester % (Auto) 5.0 (0.0-10.0) % Eos % (Auto) 0.5 (0.0-4.0) % Baso % (Auto) 0.7 (0.0-2.0) % Neut # (Auto) 5.2 (1.8-7.0) K/uL Lymph # (Auto) 1.2 (1.0-4.3) K/uL Chester # (Auto) 0.3 (0.0-0.8) K/uL Eos # (Auto) 0.0 (0.0-0.7) K/uL Baso # (Auto) 0.0 (0.0-0.2) K/uL PT (9.7-12.2) SECONDS INR APTT (21-34) SECONDS Puncture Site Rr pCO2 49 H (35-45) mm/Hg pO2 142 H (80-100) mm/Hg HCO3 20.3 L (21-28) mmol/L ABG pH 7.25 L (7.35-7.45) ABG Total CO2 23.0 (22-28) mmol/L ABG O2 Saturation 98.1 H (95-98) % ABG Base Excess -6.0 L (-2.0-3.0) mmol/L ABG Hemoglobin (11.7-17.4) g/dL ABG Carboxyhemoglobin (0.5-1.5) % POC ABG HHb (Measured) (0.0-5.0) % ABG Methemoglobin (0.0-3.0) % Booker Test Pos ABG Potassium 3.7 (3.6-5.2) mmol/L A-a O2 Difference 510.0 mm/Hg Respiratory Index 3.6 Hgb O2 Saturation (95.0-98.0) % Glucose 174 H (75-110) mg/dl Lactate 2.8 H (0.7-2.1) mmol/L Vent Mode Mechanical Rate 16 FiO2 100.0 % Tidal Volume 500 PEEP 5 Crit Value Called To Crit Value Called By Crit Value Read Back Blood Gas Notified Time Sodium 130.0 L (132-148) mmol/L Potassium (3.6-5.2) mmol/L Chloride 98.0 (98-107) mmol/L Carbon Dioxide (22-30) mmol/L Anion Gap (10-20) BUN (9-20) mg/dL Creatinine (0.8-1.5) mg/dL Est GFR ( Amer) Est GFR (Non-Af Amer) POC Glucose (mg/dL) 86 (65-110) mg/dL Random Glucose (75-110) mg/dL Calcium (8.6-10.4) mg/dl Phosphorus (2.5-4.5) mg/dL Magnesium (1.6-2.3) mg/dL Total Bilirubin (0.2-1.3) mg/dL AST (17-59) U/L ALT (21-72) U/L Alkaline Phosphatase (38-126) U/L Troponin I (0.00-0.120) ng/mL Total Protein (6.3-8.3) g/dL Albumin (3.5-5.0) g/dL Globulin (2.2-3.9) gm/dL Albumin/Globulin Ratio (1.0-2.1) Arterial Blood Potassium 3.7 (3.6-5.2) mmol/L 03/24/17 03/24/17 03/24/17 Range/Units 11:25 11:16 11:16 WBC (4.8-10.8) K/uL RBC (4.40-5.90) Mil/uL Hgb (12.0-18.0) g/dL Hct (35.0-51.0) % MCV (80.0-94.0) fL MCH (27.0-31.0) pg MCHC (33.0-37.0) g/dL RDW (11.5-14.5) % Plt Count (130-400) K/uL MPV (7.2-11.7) fL Neut % (Auto) (50.0-75.0) % Lymph % (Auto) (20.0-40.0) % Chester % (Auto) (0.0-10.0) % Eos % (Auto) (0.0-4.0) % Baso % (Auto) (0.0-2.0) % Neut # (Auto) (1.8-7.0) K/uL Lymph # (Auto) (1.0-4.3) K/uL Chester # (Auto) (0.0-0.8) K/uL Eos # (Auto) (0.0-0.7) K/uL Baso # (Auto) (0.0-0.2) K/uL PT 11.3 (9.7-12.2) SECONDS INR 1.0 APTT 21 (21-34) SECONDS Puncture Site Rra pCO2 86 H* (35-45) mm/Hg pO2 55 L (80-100) mm/Hg HCO3 21.0 (21-28) mmol/L ABG pH 7.11 L* (7.35-7.45) ABG Total CO2 29.9 H (22-28) mmol/L ABG O2 Saturation 82.3 L (95-98) % ABG Base Excess -4.3 L (-2.0-3.0) mmol/L ABG Hemoglobin (11.7-17.4) g/dL ABG Carboxyhemoglobin (0.5-1.5) % POC ABG HHb (Measured) (0.0-5.0) % ABG Methemoglobin (0.0-3.0) % Booker Test N/a ABG Potassium 3.7 (3.6-5.2) mmol/L A-a O2 Difference 551.0 mm/Hg Respiratory Index 10.0 Hgb O2 Saturation (95.0-98.0) % Glucose 137 H (75-110) mg/dl Lactate 3.3 H (0.7-2.1) mmol/L Vent Mode Prvc Mechanical Rate 14 FiO2 100.0 % Tidal Volume 500 PEEP 5 Crit Value Called To Dr. pierson Crit Value Called By Mushtaq stout pet walker Crit Value Read Back Y Blood Gas Notified Time 1129 Sodium 133.0 132 (132-148) mmol/L Potassium 4.0 (3.6-5.2) mmol/L Chloride 99.0 96 L (98-107) mmol/L Carbon Dioxide 21 L (22-30) mmol/L Anion Gap 19 (10-20) BUN 9 (9-20) mg/dL Creatinine 0.8 (0.8-1.5) mg/dL Est GFR ( Amer) > 60 Est GFR (Non-Af Amer) > 60 POC Glucose (mg/dL) (65-110) mg/dL Random Glucose 134 H (75-110) mg/dL Calcium 8.2 L (8.6-10.4) mg/dl Phosphorus (2.5-4.5) mg/dL Magnesium (1.6-2.3) mg/dL Total Bilirubin 0.8 (0.2-1.3) mg/dL AST 24 (17-59) U/L ALT 25 (21-72) U/L Alkaline Phosphatase 42 (38-126) U/L Troponin I < 0.0120 (0.00-0.120) ng/mL Total Protein 7.2 (6.3-8.3) g/dL Albumin 4.2 (3.5-5.0) g/dL Globulin 3.1 (2.2-3.9) gm/dL Albumin/Globulin Ratio 1.4 (1.0-2.1) Arterial Blood Potassium 3.7 (3.6-5.2) mmol/L Laboratory Results - last 24 hr 03/24/17 03/24/17 03/24/17 11:16 11:16 11:25 WBC RBC Hgb Hct MCV MCH MCHC RDW Plt Count MPV Neut % (Auto) Lymph % (Auto) Chester % (Auto) Eos % (Auto) Baso % (Auto) Neut # (Auto) Lymph # (Auto) Chester # (Auto) Eos # (Auto) Baso # (Auto) PT 11.3 INR 1.0 APTT 21 Puncture Site Rra pCO2 86 H* pO2 55 L HCO3 21.0 ABG pH 7.11 L* ABG Total CO2 29.9 H ABG O2 Saturation 82.3 L ABG Base Excess -4.3 L ABG Hemoglobin ABG Carboxyhemoglobin POC ABG HHb (Measured) ABG Methemoglobin Booker Test N/a ABG Potassium 3.7 A-a O2 Difference 551.0 Respiratory Index 10.0 Hgb O2 Saturation Glucose 137 H Lactate 3.3 H Vent Mode Prvc Mechanical Rate 14 FiO2 100.0 Tidal Volume 500 PEEP 5 Crit Value Called To Dr. pierson Crit Value Called By Mushtaq stout pet walker Crit Value Read Back Y Blood Gas Notified Time 1129 Sodium 132 133.0 Potassium 4.0 Chloride 96 L 99.0 Carbon Dioxide 21 L Anion Gap 19 BUN 9 Creatinine 0.8 Est GFR ( Amer) > 60 Est GFR (Non-Af Amer) > 60 POC Glucose (mg/dL) Random Glucose 134 H Calcium 8.2 L Phosphorus Magnesium Total Bilirubin 0.8 AST 24 ALT 25 Alkaline Phosphatase 42 Troponin I < 0.0120 Total Protein 7.2 Albumin 4.2 Globulin 3.1 Albumin/Globulin Ratio 1.4 Arterial Blood Potassium 3.7 03/24/17 03/24/17 03/24/17 11:52 11:54 16:33 WBC 6.8 RBC 5.18 Hgb 15.9 Hct 46.5 MCV 89.8 MCH 30.7 MCHC 34.2 RDW 13.5 Plt Count 188 MPV 7.9 Neut % (Auto) 76.8 H Lymph % (Auto) 17.0 L Chester % (Auto) 5.0 Eos % (Auto) 0.5 Baso % (Auto) 0.7 Neut # (Auto) 5.2 Lymph # (Auto) 1.2 Chester # (Auto) 0.3 Eos # (Auto) 0.0 Baso # (Auto) 0.0 PT INR APTT Puncture Site Rr pCO2 49 H pO2 142 H HCO3 20.3 L ABG pH 7.25 L ABG Total CO2 23.0 ABG O2 Saturation 98.1 H ABG Base Excess -6.0 L ABG Hemoglobin ABG Carboxyhemoglobin POC ABG HHb (Measured) ABG Methemoglobin Booker Test Pos ABG Potassium 3.7 A-a O2 Difference 510.0 Respiratory Index 3.6 Hgb O2 Saturation Glucose 174 H Lactate 2.8 H Vent Mode Mechanical Rate 16 FiO2 100.0 Tidal Volume 500 PEEP 5 Crit Value Called To Crit Value Called By Crit Value Read Back Blood Gas Notified Time Sodium 130.0 L Potassium Chloride 98.0 Carbon Dioxide Anion Gap BUN Creatinine Est GFR ( Amer) Est GFR (Non-Af Amer) POC Glucose (mg/dL) 86 Random Glucose Calcium Phosphorus Magnesium Total Bilirubin AST ALT Alkaline Phosphatase Troponin I Total Protein Albumin Globulin Albumin/Globulin Ratio Arterial Blood Potassium 3.7 03/25/17 03/25/17 03/25/17 05:01 06:43 06:43 WBC 7.0 RBC 4.18 L Hgb 12.8 D Hct 37.2 MCV 89.0 MCH 30.7 MCHC 34.5 RDW 13.4 Plt Count 155 MPV 8.9 Neut % (Auto) 82.1 H Lymph % (Auto) 10.7 L Chester % (Auto) 6.7 Eos % (Auto) 0.1 Baso % (Auto) 0.4 Neut # (Auto) 5.7 Lymph # (Auto) 0.7 L Chester # (Auto) 0.5 Eos # (Auto) 0.0 Baso # (Auto) 0.0 PT INR APTT Puncture Site Rr pCO2 26 L pO2 379 H HCO3 23.1 ABG pH 7.49 H ABG Total CO2 20.6 L ABG O2 Saturation 98.3 H ABG Base Excess -2.3 L ABG Hemoglobin 12.3 ABG Carboxyhemoglobin 0.3 L POC ABG HHb (Measured) 1.7 ABG Methemoglobin 1.2 Booker Test Pos ABG Potassium A-a O2 Difference 159.0 Respiratory Index 0.4 Hgb O2 Saturation 96.8 Glucose Lactate Vent Mode Prvc Mechanical Rate 20 FiO2 80.0 Tidal Volume 500 PEEP 5 Crit Value Called To Crit Value Called By Crit Value Read Back Blood Gas Notified Time Sodium 127 L Potassium 3.5 L Chloride 99 Carbon Dioxide 20 L Anion Gap 11 BUN 11 Creatinine 0.9 Est GFR ( Amer) > 60 Est GFR (Non-Af Amer) > 60 POC Glucose (mg/dL) Random Glucose 167 H Calcium 7.4 L Phosphorus 2.2 L Magnesium 1.9 Total Bilirubin 1.4 H AST 32 ALT 23 Alkaline Phosphatase 34 L Troponin I Total Protein 5.5 L Albumin 2.9 L D Globulin 2.6 Albumin/Globulin Ratio 1.1 Arterial Blood Potassium EKG/Cardiology Studies: Cardiology / EKG Studies 03/24/17 11:01 EKG [ELECTROCARDIOGRAM] Stat Comment: Mode Of Transportation: PORTABLE Reason For Exam: Unresponsive Fingerstick Blood Sugar Results: 119 Critical Care Progress Note - Nutrition Nutrition: Nutrition Category Date Time Status NPO Diet [DIET] Diets 03/24/17 Dinner Active
--- NOTE | 2017-03-25 12:19 | CARD ---
APPROVED REPORT EKG Measurement Heart [id number] <Conclusion> Sinus tachycardia ST & T wave abnormality, consider inferior ischemia Abnormal ECG
--- NOTE | 2017-03-25 13:35 | CP.PCM.CON ---
History of Present Illness - History of Present Illness History of Present Illness: INFECTIOUS DISEASE. HPI.76-year-old male with multiple medical problems including seizure disorder, CVA, hypercholesterolemia, hypertension, dementia who was admitted at [facility] 03/24/17 with history of seizures and inability to be intubated in the field and was brought to ER [facility] and intubated in the emergency room. Patient also had a brief period of asystole during this time and was resuscitated. Patient was transferred to ICU for further management. Chest x-ray on admission showed opacity right upper lobe and medial hemithorax and atelectasis. CT angiogram showed no evidence of PE and shift of mediastinum left more than right. Also seen was tree-in-bud alveolar infiltrates RUL/JUHI. +ETT/OGT. Patient was empirically started on IV Zosyn 2.25 every 6 hourly by furniture assembler. PATIENT PRESENTLY JUST EXTUBATED, ON VENTIMASK TODAY. INFECTIOUS DISEASE CONSULTATION REQUESTED BY PMD FOR FURTHER EVALUATION/AND iv ANTIBIOTICS. HISTORY OBTAINED FROM FAMILY MEMBERS AT BEDSIDE AND THE CHART. PATIENT PRESENTLY DENIES ANY CHEST PAIN/OR SHORTNESS OF BREATH. PMH; HYPERTENSION, HYPERCHOLESTEROLEMIA, SEIZURE DISORDER, DEMENTIA. SH; NONSMOKER, NONALCOHOLIC. FAMILY HISTORY; NC MEDS; SEE MARS. ALLERGIES; NKA. Review of Systems - Constitutional Constitutional: absent: Chills, Fever - EENT Eyes: absent: Change in Vision, Floaters Nose/Mouth/Throat: Dry Mouth - Cardiovascular Cardiovascular: absent: Chest Pain, Leg Edema, Palpitations - Respiratory Respiratory: Chest Congestion. absent: Cough - Gastrointestinal Gastrointestinal: absent: Abdominal Pain, Diarrhea - Neurological Neurological: absent: Dizziness, Headaches Additional comments: CAME IN WITH SEIZURES. PRESENTLY CONTROLLED. - Hematologic/Lymphatic Hematologic: As Per HPI. absent: Easy Bleeding, Easy Bruising Past Patient History - Infectious Disease Hx of Infectious Diseases: None - Tetanus Immunizations Tetanus Immunization: Unknown - Past Medical History & Family History Past Medical History?: Yes - Past Social History Smoking Status: Never Smoked - CARDIAC Hx Hypercholesterolemia: Yes Hx Hypertension: Yes - PULMONARY Hx Respiratory Disorders: No - NEUROLOGICAL Hx Dementia: No Hx Seizures: Yes Hx Transient Ischemic Attacks (TIA): Yes - HEENT Hx HEENT Problems: No - RENAL Hx Chronic Kidney Disease: No - ENDOCRINE/METABOLIC Hx Endocrine Disorders: No - HEMATOLOGICAL/ONCOLOGICAL Hx Blood Disorders: No - INTEGUMENTARY Hx Dermatological Problems: No - MUSCULOSKELETAL/RHEUMATOLOGICAL Hx Falls: Yes - GASTROINTESTINAL Hx Gastritis: Yes - GENITOURINARY/GYNECOLOGICAL Hx Genitourinary Disorders: No - PSYCHIATRIC Hx Psychophysiologic Disorder: No Hx Substance Use: No - SURGICAL HISTORY Hx Surgeries: No - ANESTHESIA Hx Anesthesia: No Meds Allergies/Adverse Reactions: Allergies Allergy/AdvReac Type Severity Reaction Status Date / Time No Known Allergies Allergy Verified 03/24/17 11:02 - Medications Medications: Current Medications Albuterol/Ipratropium (Duoneb 3 Mg/0.5 Mg (3 Ml) Ud) 3 ml INH RQ6 [facility] Last Admin: 03/25/17 07:27 Dose: 3 ml Aspirin (Aspirin Chewable) 81 mg PO DAILY [facility] Last Admin: 03/25/17 10:21 Dose: 81 mg Heparin Sodium (Porcine) (Heparin) 5,000 units SC Q8 [facility] Last Admin: 03/25/17 13:11 Dose: 5,000 units Propofol (Diprivan) 1,000 mg in 100 mls @ 2.041 mls/hr IV .Q24H PRN; Protocol; 5 MCG/KG/MIN PRN Reason: TITRATE PER MD ORDER Last Titration: 03/24/17 17:15 Dose: 0 mcg/kg/min, 0 mls/hr Piperacillin Sod/Tazobactam Sod (Zosyn 2.25 Gm Iv Premix) 2.25 gm in 50 mls @ 100 mls/hr IVPB Q6H [facility] Last Admin: 03/25/17 10:19 Dose: 100 mls/hr Sodium Chloride (Sodium Chloride 0.9%) 1,000 mls @ 100 mls/hr IV .Q10H [facility] Last Admin: 03/25/17 13:12 Dose: 100 mls/hr Levetiracetam 1,200 mg/ Sodium (Chloride) 112 mls @ 420 mls/hr IVPB Q12H [facility] Last Admin: 03/25/17 10:21 Dose: 420 mls/hr Lamotrigine (Lamictal) 50 mg PO BID [facility] Last Admin: 03/25/17 10:20 Dose: 50 mg Lorazepam (Ativan) 2 mg IVP Q6H PRN PRN Reason: Anxiety Last Admin: 03/25/17 03:27 Dose: 2 mg Losartan Potassium (Cozaar) 25 mg PO DAILY [facility] Last Admin: 03/25/17 12:17 Dose: Not Given Metoprolol Tartrate (Lopressor) 25 mg PO BID [facility] Last Admin: 03/25/17 12:16 Dose: Not Given Pantoprazole Sodium (Protonix Inj) 40 mg IVP DAILY [facility] Last Admin: 03/25/17 10:20 Dose: 40 mg Rosuvastatin Calcium (Crestor) 10 mg PO HS [facility] Last Admin: 03/24/17 21:47 Dose: 10 mg Physical Exam - Constitutional Appears: No Acute Distress - Head Exam Head Exam: NORMAL INSPECTION - Eye Exam Eye Exam: EOMI, PERRL - ENT Exam ENT Exam: Normal Oropharynx - Neck Exam Neck exam: Positive for: Normal Inspection - Respiratory Exam Respiratory Exam: Rhonchi (BILATERALLY UPPER LOBES) - Cardiovascular Exam Cardiovascular Exam: Tachycardia, REGULAR RHYTHM, +S1 - GI/Abdominal Exam GI & Abdominal Exam: Normal Bowel Sounds, Soft. absent: Organomegaly - Extremities Exam Extremities exam: Positive for: normal capillary refill. Negative for: calf tenderness, pedal edema (BILATERAL vENODYNE.) - Neurological Exam Neurological exam: Alert, CN II-XII Intact, Oriented x3 - Psychiatric Exam Psychiatric exam: Normal Mood - Skin Skin Exam: Normal Color, Warm Results - Vital Signs Recent Vital Signs: Last Vital Signs Temp 97.5 F L 03/25/17 08:00 Pulse 94 H 03/25/17 13:00 Resp 16 03/25/17 13:00 BP 117/75 03/25/17 12:47 Pulse Ox 100 03/25/17 13:00 - Labs Result Diagrams: 03/25/17 06:43 03/25/17 06:43 Labs: Laboratory Results - last 24 hr 03/24/17 03/25/17 03/25/17 16:33 05:01 06:43 WBC 7.0 RBC 4.18 L Hgb 12.8 D Hct 37.2 MCV 89.0 MCH 30.7 MCHC 34.5 RDW 13.4 Plt Count 155 MPV 8.9 Neut % (Auto) 82.1 H Lymph % (Auto) 10.7 L Bailey % (Auto) 6.7 Eos % (Auto) 0.1 Baso % (Auto) 0.4 Neut # (Auto) 5.7 Lymph # (Auto) 0.7 L Bailey # (Auto) 0.5 Eos # (Auto) 0.0 Baso # (Auto) 0.0 Puncture Site Rr pCO2 26 L pO2 379 H HCO3 23.1 ABG pH 7.49 H ABG Total CO2 20.6 L ABG O2 Saturation 98.3 H ABG Base Excess -2.3 L ABG Hemoglobin 12.3 ABG Carboxyhemoglobin 0.3 L POC ABG HHb (Measured) 1.7 ABG Methemoglobin 1.2 Booker Test Pos A-a O2 Difference 159.0 Respiratory Index 0.4 Hgb O2 Saturation 96.8 Vent Mode Prvc Mechanical Rate 20 FiO2 80.0 Tidal Volume 500 PEEP 5 Sodium Potassium Chloride Carbon Dioxide Anion Gap BUN Creatinine Est GFR ( Amer) Est GFR (Non-Af Amer) POC Glucose (mg/dL) 86 Random Glucose Calcium Phosphorus Magnesium Total Bilirubin AST ALT Alkaline Phosphatase Total Protein Albumin Globulin Albumin/Globulin Ratio 03/25/17 06:43 WBC RBC Hgb Hct MCV MCH MCHC RDW Plt Count MPV Neut % (Auto) Lymph % (Auto) Bailey % (Auto) Eos % (Auto) Baso % (Auto) Neut # (Auto) Lymph # (Auto) Bailey # (Auto) Eos # (Auto) Baso # (Auto) Puncture Site pCO2 pO2 HCO3 ABG pH ABG Total CO2 ABG O2 Saturation ABG Base Excess ABG Hemoglobin ABG Carboxyhemoglobin POC ABG HHb (Measured) ABG Methemoglobin Booker Test A-a O2 Difference Respiratory Index Hgb O2 Saturation Vent Mode Mechanical Rate FiO2 Tidal Volume PEEP Sodium 127 L Potassium 3.5 L Chloride 99 Carbon Dioxide 20 L Anion Gap 11 BUN 11 Creatinine 0.9 Est GFR ( Amer) > 60 Est GFR (Non-Af Amer) > 60 POC Glucose (mg/dL) Random Glucose 167 H Calcium 7.4 L Phosphorus 2.2 L Magnesium 1.9 Total Bilirubin 1.4 H AST 32 ALT 23 Alkaline Phosphatase 34 L Total Protein 5.5 L Albumin 2.9 L D Globulin 2.6 Albumin/Globulin Ratio 1.1 - Imaging and Cardiology CT scan - chest Status: Report reviewed by me (see reports) Assessment & Plan (1) Aspiration pneumonia Status: Acute (2) Respiratory failure Status: Acute (3) Status epilepticus Status: Acute (4) Acute CVA (cerebrovascular accident) Status: Acute - Assessment and Plan (Free Text) Plan: PLAN; ESR. CRP. PROCALCITONIN. FOLLOW-UP SPUTUM GRAM STAIN AND CULTURE. CONTINUE IV ZOSYN -DECREASE DOSE TO 2.25 EVERY 8 HOURLY IN VIEW OF BILIRUBINEMIA. 03/24/16 FOLLOW-UP SPUTUM GRAM STAIN AND CULTURE. PATIENT HAS TREE-IN-BUD ALVEOLAR INFILTRATES RUL/JUHI USUALLY SEEN WITH REJI PULMONARY INFECTIONS. WILL ALSO CHECK QUANTIFERON -GOLD TB TEST TO R/O LATENT TB. WILL TRY TO GET MORE HISTORY FROM PATIENT/OR FAMILY MEMBERS. TO FOLLOW WHILE PATIENT IN HOSPITAL. THANK YOU FOR ALLOWING ME TO PARTICIPATE IN THE CARE OF YOUR PATIENT.
--- NOTE | 2017-03-25 13:42 | CP.PCM.PN ---
Subjective - Date & Time of Evaluation Date of Evaluation: 03/25/17 Time of Evaluation: 13:41 - Subjective Subjective: INTUBATED ON VENT NO FURTHER SEIZURES ID EVAL TO R/O ASPIRATION SUPPORTIVE RX Objective - Vital Signs/Intake and Output Vital Signs (last 24 hours): Temp Pulse Resp BP Pulse Ox 97.5 F L 94 H 16 117/75 100 03/25/17 08:00 03/25/17 13:00 03/25/17 13:00 03/25/17 12:47 03/25/17 13:00 Intake and Output: 03/25/17 03/25/17 11:59 23:59 Intake Total 1376 126 Output Total 455 Balance 921 126 - Medications Medications: Current Medications Albuterol/Ipratropium (Duoneb 3 Mg/0.5 Mg (3 Ml) Ud) 3 ml INH RQ6 [facility] Last Admin: 03/25/17 07:27 Dose: 3 ml Aspirin (Aspirin Chewable) 81 mg PO DAILY [facility] Last Admin: 03/25/17 10:21 Dose: 81 mg Heparin Sodium (Porcine) (Heparin) 5,000 units SC Q8 [facility] Last Admin: 03/25/17 13:11 Dose: 5,000 units Propofol (Diprivan) 1,000 mg in 100 mls @ 2.041 mls/hr IV .Q24H PRN; Protocol; 5 MCG/KG/MIN PRN Reason: TITRATE PER MD ORDER Last Titration: 03/24/17 17:15 Dose: 0 mcg/kg/min, 0 mls/hr Piperacillin Sod/Tazobactam Sod (Zosyn 2.25 Gm Iv Premix) 2.25 gm in 50 mls @ 100 mls/hr IVPB Q6H [facility] Last Admin: 03/25/17 10:19 Dose: 100 mls/hr Sodium Chloride (Sodium Chloride 0.9%) 1,000 mls @ 100 mls/hr IV .Q10H [facility] Last Admin: 03/25/17 13:12 Dose: 100 mls/hr Levetiracetam 1,200 mg/ Sodium (Chloride) 112 mls @ 420 mls/hr IVPB Q12H [facility] Last Admin: 03/25/17 10:21 Dose: 420 mls/hr Lamotrigine (Lamictal) 50 mg PO BID [facility] Last Admin: 03/25/17 10:20 Dose: 50 mg Lorazepam (Ativan) 2 mg IVP Q6H PRN PRN Reason: Anxiety Last Admin: 03/25/17 03:27 Dose: 2 mg Losartan Potassium (Cozaar) 25 mg PO DAILY [facility] Last Admin: 03/25/17 12:17 Dose: Not Given Metoprolol Tartrate (Lopressor) 25 mg PO BID [facility] Last Admin: 03/25/17 12:16 Dose: Not Given Pantoprazole Sodium (Protonix Inj) 40 mg IVP DAILY [facility] Last Admin: 03/25/17 10:20 Dose: 40 mg Rosuvastatin Calcium (Crestor) 10 mg PO HS [facility] Last Admin: 03/24/17 21:47 Dose: 10 mg - Labs Labs: 03/25/17 06:43 03/25/17 06:43 PT 11.3 SECONDS (9.7-12.2) 03/24/17 11:16 INR 1.0 03/24/17 11:16 APTT 21 SECONDS (21-34) 03/24/17 11:16 Assessment and Plan (1) Respiratory failure Status: Acute (2) Status epilepticus Status: Acute (3) Ventricular tachycardia Status: Acute (4) Aspiration pneumonia Status: Acute
--- NOTE | 2017-03-25 16:32 | CON ---
DATE: 03/24/2017 ATTENDING PHYSICIAN: Fred Reynolds MD The patient's room # ICU bed 12. REASON FOR CONSULTATION: Status epilepticus. CHIEF COMPLAINT: The patient was brought into [facility] with a history of continuous seizure. From neurological point of view, I was called in to evaluate him for further management. HISTORY OF PRESENTING ILLNESS: Mr. Sherley Mancia is a 76-year-old right -handed [place] male who is known to me for many years, being involved to take care of him for his stroke manifesting with vision loss, secondarily leading to dementia and seizures. He has been doing well with Keppra and lamotrigine lower dose. His last seizure was a few months ago. At least he gets 1 to 2 seizures per year. Each time, he gets admitted and the medication is adjusted and he is back home. As per the history from the family members, he did have a left-sided vocal twitching which was persistent with head movements for 20 minutes, which is unusual, but however, it is low intense than previous times. He did not lose his consciousness. He did not void his urine. 911 was called in. The patient was brought into [facility] for further management. Because of the continuous seizures, the patient was intubated to stabilize his seizures. Medications all given through IV. PAST MEDICAL HISTORY: Stroke, vascular dementia, seizures, hypertension, and dyslipidemia. PERSONAL HISTORY: No history of smoking or alcohol use. REVIEW OF SYSTEMS: A 12-point systems being reviewed from Neuro, continuous seizures and stroke. MEDICATIONS: Aspirin, lorazepam, losartan, Crestor, Diprivan, DuoNeb, heparin, Lamictal, levetiracetam 200 b.i.d. PHYSICAL EXAMINATION VITAL SIGNS: Blood pressure 96/59, mean arterial pressure 74, respiratory rate 16, temperature afebrile. The patient is intubated. NECK: Supple. No carotid bruits. HEART: Heart sounds are regular. CHEST: Fair air entry. EXTREMITIES: The left leg extremity is rotated. NEUROLOGIC EXAMINATION: Verbally arousable. He is awake immediately. He wishes me with a social smile. He wants his tube out. He follows commands. No right and left confusion. He moves both upper extremities against gravity. Left leg is somewhat weaker than the right side. CRANIAL NERVE EXAMINATION: Decreased to visual threat on his left side compared with the right side. Pupils reactive to light. Extraocular movements intact. No gaze disturbances. No facial asymmetry. Good gag on manipulating endotracheal tube. MOTOR EXAMINATION: As stated above. Deep tendon reflexes trace on both sides. Plantars are upgoing on his left side. COORDINATION: Sbebtv-plav-znhgrb test is intact. GAIT: Deferred at this time. LABORATORY DATA: CT of the head reviewed showed encephalomalacia from his old stroke on his right occipital parietal region, which is associated with small vessel disease. 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 RECOMMENDATIONS: Continue Keppra 1250 mg twice a day and Lamictal dose can be increased to 50 mg at present and can be given through NG tube. The patient should have an EEG. If medically stable, the patient can be extubated and MRI of the brain to be done to rule out any stroke process. Ajit Del Valle MD
[2017-03-26] MEDS: Sodium Chloride 0.9% 1,000 ML IV SCH ×2 (00:06→05:24)
[2017-03-26] MEDS: Piperacill/Tazo 2.25gm in Dex 2.25 GM/50 ML BAG IVPB SCH ×3 (00:06→16:15)
[2017-03-26] MEDS: Albuterol-Ipratrop 3 mg / 0.5 (3 ml) UD INH SCH ×4 (02:13→19:26)
[2017-03-26 06:34] LABS: BASO % 0.7 % (0.0-2.0); EOS # 0.1 K/uL (0.0-0.7); EOS % 1.8 % (0.0-4.0); HEMOGLOBIN 11.9 g/dL (12.0-18.0); LYMPH # 0.8 K/uL (1.0-4.3); LYMPH % 15.3 % (20.0-40.0); MEAN CELL VOLUME 89.3 fL (80.0-94.0); MEAN CORPUSCULAR HEMOGLOBIN 30.4 pg (27.0-31.0); MEAN PLATELET VOLUME 9.1 fL (7.2-11.7); MONO # 0.4 K/uL (0.0-0.8); MONO % 8.2 % (0.0-10.0); RBC 3.92 Mil/uL (4.40-5.90); RED CELL DISTRIBUTION WIDTH 13.5 % (11.5-14.5); WHITE BLOOD COUNT 5.4 K/uL (4.8-10.8)
[2017-03-26 06:44] LABS: ALB/GLOB RATIO 1.1 (1.0-2.1); ALBUMIN 2.7 g/dL (3.5-5.0); ALT/SGPT 30 U/L (21-72); AST/SGOT 19 U/L (17-59); BLOOD UREA NITROGEN 11 mg/dL (9-20); CALCIUM 7.1 mg/dl (8.6-10.4); GFR AFRICAN-AMERICAN > 60; GFR NON-AFRICAN AMERICAN > 60; MAGNESIUM 2.1 mg/dL (1.6-2.3)
[2017-03-26] MEDS ORDERED: Potassium Chloride 20 mEq ER Tab PO ONE (08:35)
--- NOTE | 2017-03-26 09:03 | PN ---
NEUROLOGICAL PROBLEM: Status epilepticus and respiratory failure. PHYSICAL EXAMINATION: VITAL SIGNS: Blood pressure 102/70, mean arterial pressure of 79, respiratory rate of 16, temperature afebrile. NEUROLOGIC: The patient was extubated, on venti mask. Mentation is back to his normal. He moves all 4 extremities. His baseline examination is unchanged compared with my previous examination as outpatient. His electroencephalogram reviewed, diffused slow activities, no paroxysmal activities or focal slowing noted. The patient's condition is back to his normal. If it has not changed, the patient can be discharged and should have followup visit as an outpatient. The patient's medication is increased to lamotrigine 50 mg that has to be continued twice a day with Keppra 1250 mg b.i.d. Ajit Del Valle MD
[2017-03-26] MEDS: levETIRAcetam 100 mg/ml (5ml) Oral Syringe PO SCH ×2 (09:38→17:51)
--- NOTE | 2017-03-26 13:35 | CP.PCM.PN ---
Subjective - Date & Time of Evaluation Date of Evaluation: 03/26/17 Time of Evaluation: 13:35 - Subjective Subjective: PATIENT SEEN IN ICU. FAMILY AT BEDSIDE. AFEBRILE, OUT OF BED ON CARDIAC CHAIR. DENIES SHORTNESS OF BREATH AWAKE AND RESPONSIVE. NO MORE SEIZURES. LABS REVIEWED. CRP >15. ESR ; 15 N pRO-CALCITONIN -LOW sPUTUM- N Dominick. CHEST X-RAY 03/25/17 - NAD. ON IV ANTIBIOTICS Objective - Vital Signs/Intake and Output Vital Signs (last 24 hours): Temp Pulse Resp BP Pulse Ox 98.6 F 83 15 106/74 96 03/26/17 12:00 03/26/17 12:00 03/26/17 12:00 03/26/17 11:47 03/26/17 12:00 Intake and Output: 03/26/17 03/26/17 06:59 18:59 Intake Total 1450 830 Output Total 675 300 Balance 775 530 - Medications Medications: Current Medications Albuterol/Ipratropium (Duoneb 3 Mg/0.5 Mg (3 Ml) Ud) 3 ml INH RQ6 [facility] Last Admin: 03/26/17 13:28 Dose: 3 ml Aspirin (Aspirin Chewable) 81 mg PO DAILY [facility] Last Admin: 03/26/17 09:36 Dose: 81 mg Heparin Sodium (Porcine) (Heparin) 5,000 units SC Q8 [facility] Last Admin: 03/26/17 05:23 Dose: 5,000 units Piperacillin Sod/Tazobactam Sod (Zosyn 2.25 Gm Iv Premix) 2.25 gm in 50 mls @ 100 mls/hr IVPB Q8H [facility] Last Admin: 03/26/17 08:30 Dose: 100 mls/hr Lamotrigine (Lamictal) 50 mg PO BID [facility] Last Admin: 03/26/17 09:38 Dose: 50 mg Levetiracetam (Keppra) 1,250 mg PO BID [facility] Last Admin: 03/26/17 09:38 Dose: 1,250 mg Lorazepam (Ativan) 2 mg IVP Q6H PRN PRN Reason: Anxiety Last Admin: 03/25/17 03:27 Dose: 2 mg Losartan Potassium (Cozaar) 25 mg PO DAILY [facility] Last Admin: 03/25/17 12:17 Dose: Not Given Metoprolol Tartrate (Lopressor) 12.5 mg PO BID [facility] Last Admin: 03/26/17 09:38 Dose: 12.5 mg Rosuvastatin Calcium (Crestor) 10 mg PO [facility] Last Admin: 03/25/17 21:27 Dose: 10 mg - Labs Labs: 03/26/17 06:11 03/26/17 06:11 PT 11.3 SECONDS (9.7-12.2) 03/24/17 11:16 INR 1.0 03/24/17 11:16 APTT 21 SECONDS (21-34) 03/24/17 11:16 - Constitutional Appears: No Acute Distress - Head Exam Head Exam: NORMAL INSPECTION - Eye Exam Eye Exam: EOMI, PERRL - ENT Exam ENT Exam: Normal Oropharynx - Neck Exam Neck Exam: Normal Inspection - Respiratory Exam Respiratory Exam: Rhonchi (FEW RHONCHI RIGHT SIDE.) - Cardiovascular Exam Cardiovascular Exam: REGULAR RHYTHM, +S1, +S2 - GI/Abdominal Exam GI & Abdominal Exam: Soft, Normal Bowel Sounds. absent: Organomegaly - Extremities Exam Extremities Exam: Normal Capillary Refill. absent: Calf Tenderness, Pedal Edema - Neurological Exam Neurological Exam: Alert, Awake, CN II-XII Intact, Oriented x3 - Psychiatric Exam Psychiatric exam: Normal Mood - Skin Skin Exam: Normal Color, Warm Assessment and Plan (1) Aspiration pneumonia Status: Acute (2) Respiratory failure Status: Acute (3) Status epilepticus Status: Acute (4) Acute CVA (cerebrovascular accident) Status: Acute - Assessment and Plan (Free Text) Plan: DC IV ZOSYN -DECREASE DOSE TO 2.25 EVERY 8 HOURLY IN VIEW OF BILIRUBINEMIA. - 03/26/17 PATIENT HAS TREE-IN-BUD ALVEOLAR INFILTRATES RUL/JUHI USUALLY SEEN WITH REJI PULMONARY INFECTIONS. WILL ALSO CHECK QUANTIFERON -GOLD TB TEST TO R/O LATENT TB. PULMONARY TOILET. WILL CONSIDER STOPPING ANTIBIOTICS AND OBSERVE.
--- NOTE | 2017-03-26 13:47 | CP.PCM.PN ---
Subjective - Date & Time of Evaluation Date of Evaluation: 03/26/17 Time of Evaluation: 13:47 - Subjective Subjective: EXTUBATED ON NC DEMENTIA NO FURTHER SEIZURES IV AB Objective - Vital Signs/Intake and Output Vital Signs (last 24 hours): Temp Pulse Resp BP Pulse Ox 98.6 F 83 15 106/74 96 03/26/17 12:00 03/26/17 12:00 03/26/17 12:00 03/26/17 11:47 03/26/17 12:00 Intake and Output: 03/26/17 03/26/17 11:59 23:59 Intake Total 1340 240 Output Total 625 50 Balance 715 190 - Medications Medications: Current Medications Albuterol/Ipratropium (Duoneb 3 Mg/0.5 Mg (3 Ml) Ud) 3 ml INH RQ6 [facility] Last Admin: 03/26/17 13:28 Dose: 3 ml Aspirin (Aspirin Chewable) 81 mg PO DAILY [facility] Last Admin: 03/26/17 09:36 Dose: 81 mg Heparin Sodium (Porcine) (Heparin) 5,000 units SC Q8 [facility] Last Admin: 03/26/17 05:23 Dose: 5,000 units Piperacillin Sod/Tazobactam Sod (Zosyn 2.25 Gm Iv Premix) 2.25 gm in 50 mls @ 100 mls/hr IVPB Q8H [facility] Last Admin: 03/26/17 08:30 Dose: 100 mls/hr Lamotrigine (Lamictal) 50 mg PO BID [facility] Last Admin: 03/26/17 09:38 Dose: 50 mg Levetiracetam (Keppra) 1,250 mg PO BID [facility] Last Admin: 03/26/17 09:38 Dose: 1,250 mg Lorazepam (Ativan) 2 mg IVP Q6H PRN PRN Reason: Anxiety Last Admin: 03/25/17 03:27 Dose: 2 mg Losartan Potassium (Cozaar) 25 mg PO DAILY [facility] Last Admin: 03/25/17 12:17 Dose: Not Given Metoprolol Tartrate (Lopressor) 12.5 mg PO BID [facility] Last Admin: 03/26/17 09:38 Dose: 12.5 mg Rosuvastatin Calcium (Crestor) 10 mg PO HS [facility] Last Admin: 03/25/17 21:27 Dose: 10 mg - Labs Labs: 03/26/17 06:11 03/26/17 06:11 PT 11.3 SECONDS (9.7-12.2) 03/24/17 11:16 INR 1.0 03/24/17 11:16 APTT 21 SECONDS (21-34) 03/24/17 11:16 Assessment and Plan (1) Respiratory failure Status: Acute (2) Status epilepticus Status: Acute (3) Ventricular tachycardia Status: Acute (4) Aspiration pneumonia Status: Acute
[2017-03-27] MEDS: Albuterol-Ipratrop 3 mg / 0.5 (3 ml) UD INH SCH ×2 (01:40→07:14)
[2017-03-27] MEDS: levETIRAcetam 100 mg/ml (5ml) Oral Syringe PO SCH ×2 (10:13→18:12)
--- NOTE | 2017-03-27 13:17 | CP.PCM.DIS ---
Provider - Provider Date of Admission: 03/24/17 12:19 Attending physician: Vanessa Kwan MD Time Spent in preparation of Discharge (in minutes): 35 Diagnosis - Discharge Diagnosis (1) Respiratory failure Status: Acute (2) Status epilepticus Status: Acute (3) Ventricular tachycardia Status: Acute (4) Aspiration pneumonia Status: Acute Hospital Course - Lab Results Lab Results: Micro Results 03/24/17 20:00 Blood-Venous Blood Culture - Preliminary NO GROWTH AFTER 48 HOURS 03/24/17 19:30 Blood-Venous Blood Culture - Preliminary NO GROWTH AFTER 48 HOURS 03/24/17 14:11 Trachasp Gram Stain - Final 03/24/17 14:11 Trachasp Sputum Culture - Final NORMAL ORAL MICHAEL 03/24/17 Unknown Nose MRSA Culture (Admit) - Final MRSA NOT DETECTED 03/24/17 14:11 Urine,Parra Urine Culture - Final No Growth (<1,000 CFU/ML) Most Recent Lab Values WBC 5.4 K/uL (4.8-10.8) 03/26/17 06:11 RBC 3.92 Mil/uL (4.40-5.90) L 03/26/17 06:11 Hgb 11.9 g/dL (12.0-18.0) L 03/26/17 06:11 Hct 35.0 % (35.0-51.0) 03/26/17 06:11 MCV 89.3 fL (80.0-94.0) 03/26/17 06:11 MCH 30.4 pg (27.0-31.0) 03/26/17 06:11 MCHC 34.0 g/dL (33.0-37.0) 03/26/17 06:11 RDW 13.5 % (11.5-14.5) 03/26/17 06:11 Plt Count 122 K/uL (130-400) L D 03/26/17 06:11 MPV 9.1 fL (7.2-11.7) 03/26/17 06:11 Neut % (Auto) 74.0 % (50.0-75.0) 03/26/17 06:11 Lymph % (Auto) 15.3 % (20.0-40.0) L 03/26/17 06:11 Clinch % (Auto) 8.2 % (0.0-10.0) 03/26/17 06:11 Eos % (Auto) 1.8 % (0.0-4.0) 03/26/17 06:11 Baso % (Auto) 0.7 % (0.0-2.0) 03/26/17 06:11 Neut # (Auto) 4.0 K/uL (1.8-7.0) 03/26/17 06:11 Lymph # (Auto) 0.8 K/uL (1.0-4.3) L 03/26/17 06:11 Clinch # (Auto) 0.4 K/uL (0.0-0.8) 03/26/17 06:11 Eos # (Auto) 0.1 K/uL (0.0-0.7) 03/26/17 06:11 Baso # (Auto) 0.0 K/uL (0.0-0.2) 03/26/17 06:11 ESR 15 mm/hr (0-15) 03/26/17 06:11 PT 11.3 SECONDS (9.7-12.2) 03/24/17 11:16 INR 1.0 03/24/17 11:16 APTT 21 SECONDS (21-34) 03/24/17 11:16 Puncture Site Rr 03/25/17 05:01 pCO2 26 mm/Hg (35-45) L 03/25/17 05:01 pO2 379 mm/Hg (80-100) H 03/25/17 05:01 HCO3 23.1 mmol/L (21-28) 03/25/17 05:01 ABG pH 7.49 (7.35-7.45) H 03/25/17 05:01 ABG Total CO2 20.6 mmol/L (22-28) L 03/25/17 05:01 ABG O2 Saturation 98.3 % (95-98) H 03/25/17 05:01 ABG Base Excess -2.3 mmol/L (-2.0-3.0) L 03/25/17 05:01 ABG Hemoglobin 12.3 g/dL (11.7-17.4) 03/25/17 05:01 ABG Carboxyhemoglobin 0.3 % (0.5-1.5) L 03/25/17 05:01 POC ABG HHb (Measured) 1.7 % (0.0-5.0) 03/25/17 05:01 ABG Methemoglobin 1.2 % (0.0-3.0) 03/25/17 05:01 Booker Test Pos 03/25/17 05:01 ABG Potassium 3.7 mmol/L (3.6-5.2) 03/24/17 11:52 A-a O2 Difference 159.0 mm/Hg 03/25/17 05:01 Respiratory Index 0.4 03/25/17 05:01 Hgb O2 Saturation 96.8 % (95.0-98.0) 03/25/17 05:01 Sodium 130.0 mmol/l (132-148) L 03/24/17 11:52 Chloride 98.0 mmol/L (98-107) 03/24/17 11:52 Glucose 174 mg/dl (75-110) H 03/24/17 11:52 Lactate 2.8 mmol/L (0.7-2.1) H 03/24/17 11:52 Vent Mode Prvc 03/25/17 05:01 Mechanical Rate 20 03/25/17 05:01 FiO2 80.0 % 03/25/17 05:01 Tidal Volume 500 03/25/17 05:01 PEEP 5 03/25/17 05:01 Crit Value Called To Dr. pierson 03/24/17 11:25 Crit Value Called By Mushtaq stout rrt 03/24/17 11:25 Crit Value Read Back Y 03/24/17 11:25 Blood Gas Notified Time 1129 03/24/17 11:25 Sodium 132 mmol/L (132-148) 03/26/17 06:11 Potassium 3.3 mmol/L (3.6-5.2) L 03/26/17 06:11 Chloride 103 mmol/L (98-107) 03/26/17 06:11 Carbon Dioxide 23 mmol/L (22-30) 03/26/17 06:11 Anion Gap 9 (10-20) L 03/26/17 06:11 BUN 11 mg/dL (9-20) 03/26/17 06:11 Creatinine 0.7 mg/dL (0.8-1.5) L 03/26/17 06:11 Est GFR ( Amer) > 60 03/26/17 06:11 Est GFR (Non-Af Amer) > 60 03/26/17 06:11 POC Glucose (mg/dL) 86 mg/dL (65-110) 03/24/17 16:33 Random Glucose 77 mg/dL (75-110) 03/26/17 06:11 Calcium 7.1 mg/dl (8.6-10.4) L 03/26/17 06:11 Phosphorus 2.7 mg/dL (2.5-4.5) 03/26/17 06:11 Magnesium 2.1 mg/dL (1.6-2.3) 03/26/17 06:11 Total Bilirubin 1.0 mg/dL (0.2-1.3) 03/26/17 06:11 AST 19 U/L (17-59) 03/26/17 06:11 ALT 30 U/L (21-72) 03/26/17 06:11 Alkaline Phosphatase 27 U/L (38-126) L D 03/26/17 06:11 Troponin I < 0.0120 ng/mL (0.00-0.120) 03/24/17 11:16 C-React Prot High Sens > 15.00 mg/L (1.00-3.00) H 03/26/17 06:11 Total Protein 5.3 g/dL (6.3-8.3) L 03/26/17 06:11 Albumin 2.7 g/dL (3.5-5.0) L 03/26/17 06:11 Globulin 2.6 gm/dL (2.2-3.9) 03/26/17 06:11 Albumin/Globulin Ratio 1.1 (1.0-2.1) 03/26/17 06:11 Procalcitonin 0.16 NG/ML (0.19-0.49) L 03/26/17 06:11 Arterial Blood Potassium 3.7 mmol/L (3.6-5.2) 03/24/17 11:52 - Hospital Course Hospital Course: 76 year old male in status epi [employer] is brought to the ED by EMS for multiple seizures since 08:00 this morning. Per EMS, patient did not improve after initial versed, patient had an episode of Vtach as well. Attempted to intubate the patient 3 times without success, no stable on barak tube status post amiodarone, ativan and rocuronium. Further history is unable to be obtained due to patient's clinical condition. IN ER ANESTHESIOLOGIST TRIED INTUBATION AND A TRANSIENT ASYSTOLE WITH PRIOR V TACHY RESUSCITATED AND INTUBATED AND RESPONGING PAIN AND MOVES ALL EXT PT. WAS EXTUBATED WITH NO CARDIO=PULMONARY COMPROMISE MED WAS ADJUSTED FOR SZ F/U OUT PT Discharge Exam - Head Exam Head Exam: NORMAL INSPECTION Discharge Plan - Follow Up Plan Condition: SERIOUS Disposition: HOME/ ROUTINE
--- NOTE | 2017-03-27 20:06 | CP.PCM.PN ---
Subjective - Date & Time of Evaluation Date of Evaluation: 03/27/17 Time of Evaluation: 20:03 - Subjective Subjective: AFEBRILE, OFFERS NO COMPLAINTS. C/O PRODUCTIVE COUGH. DISCUSSED WITH FAMILY.. DISCHARGE HELD IN VIEW OF TB- WORKUP/ABNORMAL CT CHEST. GOLD-QUANTIFERON TB TEST-DONE.03/27/[address] PATIENT ON AIRBORNE PRECAUTIONS. OBTAIN SPUTUM'S FOR AFB DAILY X 3. WATCH FEVER CURVE OFF ANTIBIOTICS Objective - Vital Signs/Intake and Output Vital Signs (last 24 hours): Temp Pulse Resp BP Pulse Ox 97.3 F L 97 H 20 123/83 95 03/27/17 19:02 03/27/17 19:38 03/27/17 19:02 03/27/17 19:02 03/27/17 19:02 Intake and Output: 03/27/17 03/28/17 18:59 06:59 Intake Total 120 Output Total 500 Balance -380 - Medications Medications: Current Medications Albuterol/Ipratropium (Duoneb 3 Mg/0.5 Mg (3 Ml) Ud) 3 ml INH RQ6 [facility] Last Admin: 03/27/17 07:14 Dose: 3 ml Aspirin (Aspirin Chewable) 81 mg PO DAILY [facility] Last Admin: 03/27/17 10:12 Dose: 81 mg Heparin Sodium (Porcine) (Heparin) 5,000 units SC Q8 [facility] Last Admin: 03/27/17 14:04 Dose: 5,000 units Lamotrigine (Lamictal) 50 mg PO BID [facility] Last Admin: 03/27/17 18:15 Dose: 50 mg Levetiracetam (Keppra) 1,250 mg PO BID [facility] Last Admin: 03/27/17 18:12 Dose: 1,250 mg Lorazepam (Ativan) 2 mg IVP Q6H PRN PRN Reason: Anxiety Last Admin: 03/25/17 03:27 Dose: 2 mg Losartan Potassium (Cozaar) 25 mg PO DAILY [facility] Last Admin: 03/27/17 10:13 Dose: 25 mg Metoprolol Tartrate (Lopressor) 12.5 mg PO BID [facility] Last Admin: 03/27/17 18:16 Dose: 12.5 mg Rosuvastatin Calcium (Crestor) 10 mg PO HS [facility] Last Admin: 03/26/17 21:34 Dose: 10 mg - Labs Labs: 03/26/17 06:11 03/26/17 06:11 PT 11.3 SECONDS (9.7-12.2) 03/24/17 11:16 INR 1.0 03/24/17 11:16 APTT 21 SECONDS (21-34) 03/24/17 11:16 - Constitutional Appears: No Acute Distress - Head Exam Head Exam: NORMAL INSPECTION - Eye Exam Eye Exam: EOMI, PERRL - ENT Exam ENT Exam: Normal Oropharynx - Respiratory Exam Respiratory Exam: Decreased Breath Sounds - Cardiovascular Exam Cardiovascular Exam: REGULAR RHYTHM, +S1, +S2 - GI/Abdominal Exam GI & Abdominal Exam: Soft, Normal Bowel Sounds. absent: Organomegaly - Extremities Exam Extremities Exam: Normal Capillary Refill. absent: Calf Tenderness, Pedal Edema - Neurological Exam Neurological Exam: Alert, Awake, CN II-XII Intact, Oriented x3, Reflexes Normal - Psychiatric Exam Psychiatric exam: Normal Mood - Skin Skin Exam: Normal Color, Warm Assessment and Plan (1) Aspiration pneumonia Assessment & Plan: OFF ANTIBIOTICS.. TB WORKUP IN PROGRESS ABNORMAL CT SCAN OF THE CHEST. F/U IGRA- qUANTIferon gOLD tb TEST.. AIRBORNE PRECAUTIONS. fAMILY MADE AWARE AND UNDERSTANDS. Status: Acute (2) Respiratory failure Status: Acute (3) Status epilepticus Status: Acute (4) Acute CVA (cerebrovascular accident) Status: Acute
[2017-03-28] MEDS: Albuterol-Ipratrop 3 mg / 0.5 (3 ml) UD INH SCH ×4 (01:10→20:19)
[2017-03-28 08:18] LABS: BASO # 0.1 K/uL (0.0-0.2); BASO % 1.2 % (0.0-2.0); EOS # 0.2 K/uL (0.0-0.7); EOS % 3.6 % (0.0-4.0); HEMOGLOBIN 12.6 g/dL (12.0-18.0); LYMPH # 0.6 K/uL (1.0-4.3); MEAN CELL VOLUME 87.5 fL (80.0-94.0); MEAN CORPUSCULAR HEMOGLOBIN 30.7 pg (27.0-31.0); MEAN CORPUSCULAR HGB CONC 35.2 g/dL (33.0-37.0); MEAN PLATELET VOLUME 8.1 fL (7.2-11.7); MONO # 0.5 K/uL (0.0-0.8); MONO % 10.8 % (0.0-10.0); NEUT # 3.5 K/uL (1.8-7.0); NEUT % 71.4 % (50.0-75.0); RBC 4.08 Mil/uL (4.40-5.90); RED CELL DISTRIBUTION WIDTH 13.5 % (11.5-14.5); WHITE BLOOD COUNT 4.9 K/uL (4.8-10.8)
[2017-03-28 08:43] LABS: ALB/GLOB RATIO 1.2 (1.0-2.1); ALBUMIN 3.3 g/dL (3.5-5.0); ALT/SGPT 42 U/L (21-72); AST/SGOT 40 U/L (17-59); BLOOD UREA NITROGEN 12 mg/dL (9-20); CALCIUM 8.4 mg/dl (8.6-10.4); GFR AFRICAN-AMERICAN > 60; GFR NON-AFRICAN AMERICAN > 60
[2017-03-28] MEDS ORDERED: Potassium Chloride 20 mEq ER Tab PO ONE (11:00)
[2017-03-28] MEDS: levETIRAcetam 100 mg/ml (5ml) Oral Syringe PO SCH ×2 (11:26→20:14)
--- NOTE | 2017-03-28 13:06 | EEG ---
DATE: 03/25/2017 This is a 16-channel electroencephalogram of intubated, status post respiratory arrest patient. This study was performed at the bedside. The resting electroencephalogram consisted of a diffuse 3 to 4 Hz delta activity seen superimposed with some electrical contamination seen in bilateral cortical leads. Some movement artifact contaminated the background rhythm intermittently. The photic stimulation did not evoke driving response noted at 2 to 20 Hz. IMPRESSION: This is an abnormal electroencephalogram because of persistent slowing throughout the record suggestive of bilateral cerebral dysfunction. This is probably secondary to metabolic, vascular or degenerative process. The study could be a postictal phenomenon. Please correlate the findings with the neurological and radiological studies. Ajit Del Valle MD
[2017-03-28] MEDS: guaiFENesin DM 100 mg-10 mg/5 ml UD PO PRN (13:17)
--- NOTE | 2017-03-28 13:30 | CP.PCM.PN ---
Subjective - Date & Time of Evaluation Date of Evaluation: 03/28/17 Time of Evaluation: 13:29 - Subjective Subjective: DISCHARGE ON HOLD W/U FOR PULM TB AWAITING SPUTUM AFB Objective - Vital Signs/Intake and Output Vital Signs (last 24 hours): Temp Pulse Resp BP Pulse Ox 98.2 F 100 H 20 99/56 L 97 03/28/17 07:34 03/28/17 07:34 03/28/17 07:34 03/28/17 07:34 03/28/17 07:34 - Medications Medications: Current Medications Albuterol/Ipratropium (Duoneb 3 Mg/0.5 Mg (3 Ml) Ud) 3 ml INH RQ6 [facility] Last Admin: 03/28/17 08:23 Dose: 3 ml Aspirin (Aspirin Chewable) 81 mg PO DAILY [facility] Last Admin: 03/28/17 11:08 Dose: 81 mg Guaifenesin/Dextromethorphan (Robitussin Dm) 5 ml PO Q4H PRN PRN Reason: Cough Last Admin: 03/28/17 13:17 Dose: 5 ml Heparin Sodium (Porcine) (Heparin) 5,000 units SC Q8 [facility] Last Admin: 03/28/17 13:17 Dose: 5,000 units Lamotrigine (Lamictal) 50 mg PO BID [facility] Last Admin: 03/28/17 11:07 Dose: 50 mg Levetiracetam (Keppra) 1,250 mg PO BID [facility] Last Admin: 03/28/17 11:26 Dose: 1,250 mg Lorazepam (Ativan) 2 mg IVP Q6H PRN PRN Reason: Anxiety Last Admin: 03/25/17 03:27 Dose: 2 mg Losartan Potassium (Cozaar) 25 mg PO DAILY [facility] Last Admin: 03/28/17 11:07 Dose: 25 mg Metoprolol Tartrate (Lopressor) 12.5 mg PO BID [facility] Last Admin: 03/28/17 11:07 Dose: 12.5 mg Rosuvastatin Calcium (Crestor) 10 mg PO HS [facility] Last Admin: 03/27/17 22:27 Dose: 10 mg - Labs Labs: 03/28/17 08:09 03/28/17 08:09 PT 11.3 SECONDS (9.7-12.2) 03/24/17 11:16 INR 1.0 03/24/17 11:16 APTT 21 SECONDS (21-34) 03/24/17 11:16 Assessment and Plan (1) Respiratory failure Status: Acute (2) Status epilepticus Status: Acute (3) Ventricular tachycardia Status: Acute (4) Aspiration pneumonia Status: Acute
[2017-03-28 19:10] LABS: LEVETIRACETAM 30.5 mcg/mL
--- NOTE | 2017-03-28 22:28 | CP.PCM.PN ---
Subjective - Date & Time of Evaluation Date of Evaluation: 03/28/17 Time of Evaluation: 22:28 - Subjective Subjective: AFEBRILE, OFFERS NO COMPLAINTS. C/O PRODUCTIVE COUGH. denies night sweats. TB W/U IN PROGRESS. PER PATIENT 2 SPECIMENS OF SPUTUM WAS PROVIDED TO STAFF. Objective - Vital Signs/Intake and Output Vital Signs (last 24 hours): Temp Pulse Resp BP Pulse Ox 97.6 F 85 20 110/75 95 03/28/17 16:23 03/28/17 16:23 03/28/17 16:23 03/28/17 16:23 03/28/17 16:23 Intake and Output: 03/28/17 03/29/17 18:59 06:59 Intake Total 710 Balance 710 - Medications Medications: Current Medications Albuterol/Ipratropium (Duoneb 3 Mg/0.5 Mg (3 Ml) Ud) 3 ml INH RQ6 [facility] Last Admin: 03/28/17 20:19 Dose: 3 ml Aspirin (Aspirin Chewable) 81 mg PO DAILY [facility] Last Admin: 03/28/17 11:08 Dose: 81 mg Guaifenesin/Dextromethorphan (Robitussin Dm) 5 ml PO Q4H PRN PRN Reason: Cough Last Admin: 03/28/17 13:17 Dose: 5 ml Heparin Sodium (Porcine) (Heparin) 5,000 units SC Q8 [facility] Last Admin: 03/28/17 21:46 Dose: 5,000 units Lamotrigine (Lamictal) 50 mg PO BID [facility] Last Admin: 03/28/17 17:36 Dose: 50 mg Levetiracetam (Keppra) 1,250 mg PO BID [facility] Last Admin: 03/28/17 20:14 Dose: 1,250 mg Lorazepam (Ativan) 2 mg IVP Q6H PRN PRN Reason: Anxiety Last Admin: 03/25/17 03:27 Dose: 2 mg Losartan Potassium (Cozaar) 25 mg PO DAILY [facility] Last Admin: 03/28/17 11:07 Dose: 25 mg Metoprolol Tartrate (Lopressor) 12.5 mg PO BID [facility] Last Admin: 03/28/17 17:36 Dose: 12.5 mg Rosuvastatin Calcium (Crestor) 10 mg PO HS [facility] Last Admin: 03/28/17 21:47 Dose: 10 mg - Labs Labs: 03/28/17 08:09 03/28/17 08:09 PT 11.3 SECONDS (9.7-12.2) 03/24/17 11:16 INR 1.0 03/24/17 11:16 APTT 21 SECONDS (21-34) 03/24/17 11:16 - Constitutional Appears: No Acute Distress - Head Exam Head Exam: NORMAL INSPECTION - Eye Exam Eye Exam: EOMI, PERRL. absent: Scleral icterus - ENT Exam ENT Exam: Normal Oropharynx - Neck Exam Neck Exam: Normal Inspection - Respiratory Exam Respiratory Exam: Decreased Breath Sounds - Cardiovascular Exam Cardiovascular Exam: REGULAR RHYTHM, +S1, +S2 - GI/Abdominal Exam GI & Abdominal Exam: Soft, Normal Bowel Sounds - Extremities Exam Extremities Exam: absent: Calf Tenderness, Pedal Edema, Tenderness - Neurological Exam Neurological Exam: Awake, CN II-XII Intact, Normal Gait, Oriented x3, Reflexes Normal - Psychiatric Exam Psychiatric exam: Normal Mood - Skin Skin Exam: Normal Color, Warm Assessment and Plan (1) Aspiration pneumonia Assessment & Plan: TB WORKUP IN PROGRESS ABNORMAL CT SCAN OF THE CHEST. F/U IGRA- qUANTIferon gOLD tb TEST.. [employer] PRECAUTIONS. fAMILY MADE AWARE AND UNDERSTANDS. Status: Acute (2) Respiratory failure Status: Acute (3) Status epilepticus Status: Acute (4) Acute CVA (cerebrovascular accident) Status: Acute
[2017-03-29] MEDS: Albuterol-Ipratrop 3 mg / 0.5 (3 ml) UD INH SCH ×3 (01:06→19:24)
[2017-03-29 08:16] LABS: BASO % 0.9 % (0.0-2.0); EOS # 0.2 K/uL (0.0-0.7); EOS % 4.7 % (0.0-4.0); HEMOGLOBIN 11.3 g/dL (12.0-18.0); LYMPH % 19.3 % (20.0-40.0); MEAN CELL VOLUME 88.8 fL (80.0-94.0); MEAN CORPUSCULAR HEMOGLOBIN 30.8 pg (27.0-31.0); MEAN CORPUSCULAR HGB CONC 34.6 g/dL (33.0-37.0); MEAN PLATELET VOLUME 8.7 fL (7.2-11.7); MONO # 0.7 K/uL (0.0-0.8); MONO % 14.1 % (0.0-10.0); NEUT # 3.2 K/uL (1.8-7.0); NRBC % 0.1 % (0.0-2.0); RBC 3.67 Mil/uL (4.40-5.90); RED CELL DISTRIBUTION WIDTH 13.4 % (11.5-14.5); WHITE BLOOD COUNT 5.3 K/uL (4.8-10.8)
[2017-03-29 08:33] LABS: ALB/GLOB RATIO 1.1 (1.0-2.1); ALBUMIN 3.2 g/dL (3.5-5.0); ALT/SGPT 50 U/L (21-72); AST/SGOT 41 U/L (17-59); BLOOD UREA NITROGEN 12 mg/dL (9-20); CALCIUM 8.4 mg/dl (8.6-10.4); GFR AFRICAN-AMERICAN > 60; GFR NON-AFRICAN AMERICAN > 60
[2017-03-29] MEDS: levETIRAcetam 100 mg/ml (5ml) Oral Syringe PO SCH ×2 (10:17→18:49)
--- NOTE | 2017-03-29 11:43 | PN ---
DATE OF EVALUATION: 03/29/2017 TIME OF EVALUATION: 6:35 a.m. NEUROLOGIC PROBLEM: Status epilepticus with respiratory failure. Post extubation, neurologically stable without any seizure activities. PHYSICAL EXAMINATION: NEUROLOGIC: The patient is awake, alert, and oriented to person, place and time. Speech is clear. Moving all four extremities against gravity. There is no Tyrel's paresis. Rest of the examination is unchanged. If medically stable, the patient can be discharged and recommended antiepileptic drug which should be continued, which includes Keppra 1250 mg, either liquid or tablet form, can be continued as a twice a day with lamotrigine 50 mg twice a day. The patient is advised to have a followup visit with me, following discharge in about a month. Ajit Del Valle MD
--- NOTE | 2017-03-29 13:33 | CP.PCM.PN ---
Subjective - Date & Time of Evaluation Date of Evaluation: 03/29/17 Time of Evaluation: 13:33 - Subjective Subjective: DISCHARGE ON HOLD W/U FOR PULM TB AWAITING [employer] Objective - Vital Signs/Intake and Output Vital Signs (last 24 hours): Temp Pulse Resp BP Pulse Ox 98.8 F 92 H 20 102/75 94 L 03/29/17 07:20 03/29/17 07:20 03/29/17 07:20 03/29/17 07:20 03/29/17 07:20 - Medications Medications: Current Medications Albuterol/Ipratropium (Duoneb 3 Mg/0.5 Mg (3 Ml) Ud) 3 ml INH RQ6 [facility] Last Admin: 03/29/17 08:00 Dose: 3 ml Aspirin (Aspirin Chewable) 81 mg PO DAILY [facility] Last Admin: 03/29/17 09:15 Dose: 81 mg Guaifenesin/Dextromethorphan (Robitussin Dm) 5 ml PO Q4H PRN PRN Reason: Cough Last Admin: 03/28/17 13:17 Dose: 5 ml Heparin Sodium (Porcine) (Heparin) 5,000 units SC Q8 [facility] Last Admin: 03/29/17 13:00 Dose: 5,000 units Lamotrigine (Lamictal) 50 mg PO BID [facility] Last Admin: 03/29/17 09:15 Dose: 50 mg Levetiracetam (Keppra) 1,250 mg PO BID [facility] Last Admin: 03/29/17 10:17 Dose: 1,250 mg Lorazepam (Ativan) 2 mg IVP Q6H PRN PRN Reason: Anxiety Last Admin: 03/25/17 03:27 Dose: 2 mg Losartan Potassium (Cozaar) 25 mg PO DAILY [facility] Last Admin: 03/29/17 10:13 Dose: 25 mg Metoprolol Tartrate (Lopressor) 12.5 mg PO BID [facility] Last Admin: 03/29/17 09:15 Dose: 12.5 mg Rosuvastatin Calcium (Crestor) 10 mg PO HS [facility] Last Admin: 03/28/17 21:47 Dose: 10 mg - Labs Labs: 03/29/17 07:42 03/29/17 07:41 PT 11.3 SECONDS (9.7-12.2) 03/24/17 11:16 INR 1.0 03/24/17 11:16 APTT 21 SECONDS (21-34) 03/24/17 11:16 Assessment and Plan (1) Respiratory failure Status: Acute (2) Status epilepticus Status: Acute (3) Ventricular tachycardia Status: Acute (4) Aspiration pneumonia Status: Acute
[2017-03-29] MEDS: guaiFENesin DM 100 mg-10 mg/5 ml UD PO PRN ×2 (18:51→23:54)
--- NOTE | 2017-03-29 23:11 | CP.PCM.PN ---
Subjective - Date & Time of Evaluation Date of Evaluation: 03/29/17 Time of Evaluation: 23:11 - Subjective Subjective: AFEBRILE, OFFERS NO COMPLAINTS. C/O PRODUCTIVE COUGH. denies night sweats. TB W/U IN PROGRESS. PER PATIENT 2 SPECIMENS OF SPUTUM WAS PROVIDED TO STAFF. labs reviewed. Sputum 03/28/17 for AFB; smear negative for AFB.. Objective - Vital Signs/Intake and Output Vital Signs (last 24 hours): Temp Pulse Resp BP Pulse Ox 98.2 F 70 18 101/68 95 03/29/17 20:26 03/29/17 20:32 03/29/17 20:26 03/29/17 20:26 03/29/17 17:10 Intake and Output: 03/29/17 03/30/17 18:59 06:59 Intake Total 250 240 Balance 250 240 - Medications Medications: Current Medications Aspirin (Aspirin Chewable) 81 mg PO DAILY [facility] Last Admin: 03/29/17 09:15 Dose: 81 mg Guaifenesin/Dextromethorphan (Robitussin Dm) 5 ml PO Q4H PRN PRN Reason: Cough Last Admin: 03/29/17 18:51 Dose: 5 ml Heparin Sodium (Porcine) (Heparin) 5,000 units SC Q8 [facility] Last Admin: 03/29/17 21:37 Dose: 5,000 units Lamotrigine (Lamictal) 50 mg PO BID [facility] Last Admin: 03/29/17 18:01 Dose: 50 mg Levetiracetam (Keppra) 1,250 mg PO BID [facility] Last Admin: 03/29/17 18:49 Dose: 1,250 mg Lorazepam (Ativan) 2 mg IVP Q6H PRN PRN Reason: Anxiety Last Admin: 03/25/17 03:27 Dose: 2 mg Losartan Potassium (Cozaar) 25 mg PO DAILY [facility] Last Admin: 03/29/17 10:13 Dose: 25 mg Metoprolol Tartrate (Lopressor) 12.5 mg PO BID [facility] Last Admin: 03/29/17 18:01 Dose: 12.5 mg Rosuvastatin Calcium (Crestor) 10 mg PO HS [facility] Last Admin: 03/29/17 21:36 Dose: 10 mg - Labs Labs: 03/29/17 07:42 03/29/17 07:41 PT 11.3 SECONDS (9.7-12.2) 03/24/17 11:16 INR 1.0 03/24/17 11:16 APTT 21 SECONDS (21-34) 03/24/17 11:16 - Constitutional Appears: No Acute Distress - Head Exam Head Exam: NORMAL INSPECTION - Eye Exam Eye Exam: EOMI, PERRL - ENT Exam ENT Exam: Normal Oropharynx - Neck Exam Neck Exam: Normal Inspection - Respiratory Exam Respiratory Exam: Rhonchi (scattered rhonchi.), NORMAL BREATHING PATTERN - GI/Abdominal Exam GI & Abdominal Exam: Soft, Normal Bowel Sounds - Extremities Exam Extremities Exam: absent: Calf Tenderness, Pedal Edema - Neurological Exam Neurological Exam: Alert, Awake, CN II-XII Intact, Oriented x3 - Psychiatric Exam Psychiatric exam: Normal Mood - Skin Skin Exam: Normal Color, Warm Assessment and Plan (1) Aspiration pneumonia Assessment & Plan: tb WORKUP IN PROGRESS ABNORMAL CT SCAN OF THE CHEST. sputum 03/28/17 -VE [employer] SMEAR X1 F/U IGRA- qUANTIferon gOLD tb TEST.. [employer]CAUTIONS. fAMILY MADE AWARE AND UNDERSTANDS. Status: Acute (2) Respiratory failure Status: Acute (3) Status epilepticus Status: Acute (4) Acute CVA (cerebrovascular accident) Status: Acute
[2017-03-30 00:51] LABS: TB ANTIGEN MINUS NIL 0.02 IU/mL
[2017-03-30 07:30] LABS: BASO # 0.1 K/uL (0.0-0.2); EOS # 0.3 K/uL (0.0-0.7); EOS % 5.7 % (0.0-4.0); HEMOGLOBIN 11.3 g/dL (12.0-18.0); LYMPH # 1.1 K/uL (1.0-4.3); LYMPH % 21.1 % (20.0-40.0); MEAN CORPUSCULAR HEMOGLOBIN 30.8 pg (27.0-31.0); MEAN CORPUSCULAR HGB CONC 34.6 g/dL (33.0-37.0); MEAN PLATELET VOLUME 8.7 fL (7.2-11.7); MONO # 0.6 K/uL (0.0-0.8); MONO % 12.5 % (0.0-10.0); NEUT # 3.1 K/uL (1.8-7.0); NEUT % 59.7 % (50.0-75.0); RBC 3.65 Mil/uL (4.40-5.90); RED CELL DISTRIBUTION WIDTH 13.4 % (11.5-14.5); WHITE BLOOD COUNT 5.1 K/uL (4.8-10.8)
[2017-03-30 07:46] LABS: ALB/GLOB RATIO 1.2 (1.0-2.1); ALBUMIN 3.2 g/dL (3.5-5.0); ALT/SGPT 55 U/L (21-72); AST/SGOT 46 U/L (17-59); CALCIUM 8.3 mg/dl (8.6-10.4); GFR AFRICAN-AMERICAN > 60; GFR NON-AFRICAN AMERICAN > 60
[2017-03-30 07:52] LABS: BLOOD UREA NITROGEN 11 mg/dL (9-20)
[2017-03-30] MEDS: levETIRAcetam 100 mg/ml (5ml) Oral Syringe PO SCH ×2 (09:03→21:41)
--- NOTE | 2017-03-30 13:56 | CP.PCM.PN ---
Subjective - Date & Time of Evaluation Date of Evaluation: 03/30/17 Time of Evaluation: 13:55 - Subjective Subjective: [employer] ONE NEG OFFERS NO COMPLAINTS WILL D/W ID Objective - Vital Signs/Intake and Output Vital Signs (last 24 hours): Temp Pulse Resp BP Pulse Ox 98.0 F 96 H 20 111/77 95 03/30/17 07:20 03/30/17 08:45 03/30/17 07:20 03/30/17 07:20 03/30/17 07:20 - Medications Medications: Current Medications Aspirin (Aspirin Chewable) 81 mg PO DAILY [facility] Last Admin: 03/30/17 09:03 Dose: 81 mg Guaifenesin/Dextromethorphan (Robitussin Dm) 5 ml PO Q4H PRN PRN Reason: Cough Last Admin: 03/29/17 23:54 Dose: 5 ml Heparin Sodium (Porcine) (Heparin) 5,000 units SC Q8 [facility] Last Admin: 03/30/17 13:36 Dose: 5,000 units Lamotrigine (Lamictal) 50 mg PO BID [facility] Last Admin: 03/30/17 09:03 Dose: 50 mg Levetiracetam (Keppra) 1,250 mg PO BID [facility] Last Admin: 03/30/17 09:03 Dose: 1,250 mg Lorazepam (Ativan) 2 mg IVP Q6H PRN PRN Reason: Anxiety Last Admin: 03/25/17 03:27 Dose: 2 mg Losartan Potassium (Cozaar) 25 mg PO DAILY [facility] Last Admin: 03/30/17 09:03 Dose: 25 mg Metoprolol Tartrate (Lopressor) 12.5 mg PO BID [facility] Last Admin: 03/30/17 09:03 Dose: 12.5 mg Rosuvastatin Calcium (Crestor) 10 mg PO HS [facility] Last Admin: 03/29/17 21:36 Dose: 10 mg - Labs Labs: 03/30/17 07:10 03/30/17 07:10 PT 11.3 SECONDS (9.7-12.2) 03/24/17 11:16 INR 1.0 03/24/17 11:16 APTT 21 SECONDS (21-34) 03/24/17 11:16 Assessment and Plan (1) Respiratory failure Status: Acute (2) Status epilepticus Status: Acute (3) Ventricular tachycardia Status: Acute (4) Aspiration pneumonia Status: Acute
--- NOTE | 2017-03-30 17:47 | CP.PCM.PN ---
Subjective - Date & Time of Evaluation Date of Evaluation: 03/30/17 Time of Evaluation: 17:47 - Subjective Subjective: AFEBRILE, OFFERS NO COMPLAINTS. C/O PRODUCTIVE COUGH. denies night sweats. TB W/U IN PROGRESS. PER PATIENT 2 SPECIMENS OF SPUTUM WAS PROVIDED TO STAFF. LABS NOTED SPUTUM 03/28 -VE [employer] SMEAR SPUTUM 03/30- PENDING Objective - Vital Signs/Intake and Output Vital Signs (last 24 hours): Temp Pulse Resp BP Pulse Ox 98.5 F 74 18 106/69 94 L 03/30/17 16:49 03/30/17 16:49 03/30/17 16:49 03/30/17 16:49 03/30/17 16:49 Intake and Output: 03/30/17 03/30/17 06:59 18:59 Intake Total 240 250 Balance 240 250 - Medications Medications: Current Medications Aspirin (Aspirin Chewable) 81 mg PO DAILY [facility] Last Admin: 03/30/17 09:03 Dose: 81 mg Guaifenesin/Dextromethorphan (Robitussin Dm) 5 ml PO Q4H PRN PRN Reason: Cough Last Admin: 03/29/17 23:54 Dose: 5 ml Heparin Sodium (Porcine) (Heparin) 5,000 units SC Q8 [facility] Last Admin: 03/30/17 13:36 Dose: 5,000 units Lamotrigine (Lamictal) 50 mg PO BID [facility] Last Admin: 03/30/17 09:03 Dose: 50 mg Levetiracetam (Keppra) 1,250 mg PO BID [facility] Last Admin: 03/30/17 09:03 Dose: 1,250 mg Lorazepam (Ativan) 2 mg IVP Q6H PRN PRN Reason: Anxiety Last Admin: 03/25/17 03:27 Dose: 2 mg Losartan Potassium (Cozaar) 25 mg PO DAILY [facility] Last Admin: 03/30/17 09:03 Dose: 25 mg Metoprolol Tartrate (Lopressor) 12.5 mg PO BID [facility] Last Admin: 03/30/17 09:03 Dose: 12.5 mg Rosuvastatin Calcium (Crestor) 10 mg PO HS [facility] Last Admin: 03/29/17 21:36 Dose: 10 mg - Labs Labs: 03/30/17 07:10 03/30/17 07:10 PT 11.3 SECONDS (9.7-12.2) 03/24/17 11:16 INR 1.0 03/24/17 11:16 APTT 21 SECONDS (21-34) 03/24/17 11:16 - Constitutional Appears: No Acute Distress - Head Exam Head Exam: NORMAL INSPECTION - Eye Exam Eye Exam: EOMI, PERRL - ENT Exam ENT Exam: Normal Oropharynx - Neck Exam Neck Exam: Normal Inspection - Respiratory Exam Respiratory Exam: Clear to Ausculation Bilateral, NORMAL BREATHING PATTERN - Cardiovascular Exam Cardiovascular Exam: REGULAR RHYTHM, +S1, +S2 - GI/Abdominal Exam GI & Abdominal Exam: Soft, Normal Bowel Sounds - Extremities Exam Extremities Exam: Normal Capillary Refill. absent: Calf Tenderness, Pedal Edema - Neurological Exam Neurological Exam: Awake, CN II-XII Intact, Normal Gait, Oriented x3, Reflexes Normal - Psychiatric Exam Psychiatric exam: Normal Mood - Skin Skin Exam: Normal Color, Warm Assessment and Plan (1) Aspiration pneumonia Assessment & Plan: TB WORKUP IN PROGRESS ABNORMAL CT SCAN OF THE CHEST. sputum 03/28/17 -VE [employer] SMEAR X1 F/U IGRA- qUANTIferon gOLD tb TEST.. [employer] PRECAUTIONS. FAMILY MADE AWARE AND UNDERSTANDS. Status: Acute (2) Respiratory failure Status: Acute (3) Status epilepticus Status: Acute (4) Acute CVA (cerebrovascular accident) Status: Acute
[2017-03-30] MEDS: guaiFENesin DM 100 mg-10 mg/5 ml UD PO PRN (17:56)
[2017-03-31 00:49] VITALS: RESP 20
[2017-03-31] MEDS: levETIRAcetam 100 mg/ml (5ml) Oral Syringe PO SCH ×2 (09:12→18:08)
--- NOTE | 2017-03-31 15:17 | CP.PCM.PN ---
Subjective - Date & Time of Evaluation Date of Evaluation: 03/31/17 Time of Evaluation: 15:17 - Subjective Subjective: [employer] TWO NEG OFFERS NO COMPLAINTS WILL D/W ID Objective - Vital Signs/Intake and Output Vital Signs (last 24 hours): Temp Pulse Resp BP Pulse Ox 98.3 F 89 20 108/72 95 03/31/17 07:25 03/31/17 07:25 03/31/17 07:25 03/31/17 07:25 03/31/17 07:25 Intake and Output: 03/31/17 03/31/17 11:59 23:59 Intake Total 50 250 Balance 50 250 - Medications Medications: Current Medications Aspirin (Aspirin Chewable) 81 mg PO DAILY [facility] Last Admin: 03/31/17 09:13 Dose: 81 mg Guaifenesin/Dextromethorphan (Robitussin Dm) 5 ml PO Q4H PRN PRN Reason: Cough Last Admin: 03/30/17 17:56 Dose: 5 ml Lamotrigine (Lamictal) 50 mg PO BID [facility] Last Admin: 03/31/17 09:13 Dose: 50 mg Levetiracetam (Keppra) 1,250 mg PO BID [facility] Last Admin: 03/31/17 09:12 Dose: 1,250 mg Losartan Potassium (Cozaar) 25 mg PO DAILY [facility] Last Admin: 03/31/17 09:13 Dose: 25 mg Metoprolol Tartrate (Lopressor) 12.5 mg PO BID [facility] Last Admin: 03/31/17 09:13 Dose: 12.5 mg Rosuvastatin Calcium (Crestor) 10 mg PO HS [facility] Last Admin: 03/30/17 21:42 Dose: 10 mg - Labs Labs: 03/30/17 07:10 03/30/17 07:10 PT 11.3 SECONDS (9.7-12.2) 03/24/17 11:16 INR 1.0 03/24/17 11:16 APTT 21 SECONDS (21-34) 03/24/17 11:16 Assessment and Plan (1) Respiratory failure Status: Acute (2) Status epilepticus Status: Acute (3) Ventricular tachycardia Status: Acute (4) Aspiration pneumonia Status: Acute
--- NOTE | 2017-03-31 20:36 | PN ---
DATE: NEUROLOGIC PROBLEM: Status post status epilepticus and respiratory arrest. Patient is stable with current medication. PHYSICAL EXAMINATION: VITAL SIGNS: Stable. Blood pressure 108/72, mean arterial pressure of 84, respiratory rate 16, temperature afebrile. NEUROLOGIC: Patient is awake, alert, and oriented to person, place, and time. Speech is clear. Neuro status is back to his baseline. Patient is stable with current antiepileptic drugs including Keppra 1250 mg b.i.d. with Lamictal 50 mg b.i.d. Patient is neurologically stable. Patient can be discharged if medically stable and should follow up with us as outpatient. Ajit Del Valle MD
[2017-04-01] MEDS: levETIRAcetam 100 mg/ml (5ml) Oral Syringe PO SCH (11:09)
--- NOTE | 2017-04-01 13:40 | CP.PCM.PN ---
Subjective - Date & Time of Evaluation Date of Evaluation: 04/01/17 Time of Evaluation: 13:40 - Subjective Subjective: AFEBRILE, OFFERS NO COMPLAINTS. labs reviewed. sputum x2 -ve AFB SMEAR. GOLD-QFT TB TEST -VE. PT CAN F/U OPD. REPEAT CT SCAN CHEST IN 6 MONTHS OR EARLIER IF SYMTOMATIC. WILL F/U CULTURES OPD . CASE DISCUSSED WITH PMD. PT TO CALL MY OFFICE FOR F/U IN 4 WKS. Objective - Vital Signs/Intake and Output Vital Signs (last 24 hours): Temp Pulse Resp BP Pulse Ox 97.8 F 83 20 102/66 96 04/01/17 07:39 04/01/17 11:14 04/01/17 07:39 04/01/17 11:14 04/01/17 07:39 Intake and Output: 04/01/17 04/01/17 06:59 18:59 Intake Total 900 Balance 900 - Medications Medications: Current Medications Aspirin (Aspirin Chewable) 81 mg PO DAILY [facility] Last Admin: 04/01/17 11:09 Dose: 81 mg Guaifenesin/Dextromethorphan (Robitussin Dm) 5 ml PO Q4H PRN PRN Reason: Cough Last Admin: 03/30/17 17:56 Dose: 5 ml Lamotrigine (Lamictal) 50 mg PO BID [facility] Last Admin: 04/01/17 11:09 Dose: 50 mg Levetiracetam (Keppra) 1,250 mg PO BID [facility] Last Admin: 04/01/17 11:09 Dose: 1,250 mg Losartan Potassium (Cozaar) 25 mg PO DAILY [facility] Last Admin: 04/01/17 11:16 Dose: Not Given Metoprolol Tartrate (Lopressor) 12.5 mg PO BID [facility] Last Admin: 04/01/17 11:16 Dose: Not Given Rosuvastatin Calcium (Crestor) 10 mg PO HS [facility] Last Admin: 03/31/17 22:18 Dose: 10 mg - Labs Labs: 03/30/17 07:10 03/30/17 07:10 PT 11.3 SECONDS (9.7-12.2) 03/24/17 11:16 INR 1.0 03/24/17 11:16 APTT 21 SECONDS (21-34) 03/24/17 11:16 Assessment and Plan (1) Aspiration pneumonia Status: Acute (2) Respiratory failure Status: Acute (3) Status epilepticus Status: Acute (4) Acute CVA (cerebrovascular accident) Status: Acute
--- NOTE | 2017-04-01 13:50 | CP.PCM.DIS ---
Provider - Provider Date of Admission: 03/24/17 12:19 Attending physician: Vanessa Kwan MD Time Spent in preparation of Discharge (in minutes): 35 Diagnosis - Discharge Diagnosis (1) Respiratory failure Status: Acute (2) Status epilepticus Status: Acute (3) Ventricular tachycardia Status: Acute (4) Aspiration pneumonia Status: Acute Hospital Course - Lab Results Lab Results: Micro Results 03/30/17 12:44 Other: Please Indicate Mycobacterial Culture - Preliminary 03/24/17 20:00 Blood-Venous Blood Culture - Final NO GROWTH AFTER 5 DAYS 03/24/17 20:00 Blood-Venous Gram Stain - Final TEST NOT PERFORMED 03/24/17 19:30 Blood-Venous Blood Culture - Final NO GROWTH AFTER 5 DAYS 03/24/17 19:30 Blood-Venous Gram Stain - Final TEST NOT PERFORMED 03/28/17 08:29 Other: Please Indicate Mycobacterial Culture - Preliminary 03/27/17 Unknown Nose MRSA Culture (Admit) - Final MRSA NOT DETECTED 03/24/17 14:11 Trachasp Gram Stain - Final 03/24/17 14:11 Trachasp Sputum Culture - Final NORMAL ORAL MICHAEL 03/24/17 Unknown Nose MRSA Culture (Admit) - Final MRSA NOT DETECTED 03/24/17 14:11 Urine,Parra Urine Culture - Final No Growth (<1,000 CFU/ML) Most Recent Lab Values WBC 5.1 K/uL (4.8-10.8) 03/30/17 07:10 RBC 3.65 Mil/uL (4.40-5.90) L 03/30/17 07:10 Hgb 11.3 g/dL (12.0-18.0) L 03/30/17 07:10 Hct 32.5 % (35.0-51.0) L 03/30/17 07:10 MCV 89.0 fL (80.0-94.0) 03/30/17 07:10 MCH 30.8 pg (27.0-31.0) 03/30/17 07:10 MCHC 34.6 g/dL (33.0-37.0) 03/30/17 07:10 RDW 13.4 % (11.5-14.5) 03/30/17 07:10 Plt Count 173 K/uL (130-400) 03/30/17 07:10 MPV 8.7 fL (7.2-11.7) 03/30/17 07:10 Neut % (Auto) 59.7 % (50.0-75.0) 03/30/17 07:10 Lymph % (Auto) 21.1 % (20.0-40.0) 03/30/17 07:10 [place] % (Auto) 12.5 % (0.0-10.0) H 03/30/17 07:10 Eos % (Auto) 5.7 % (0.0-4.0) H 03/30/17 07:10 Baso % (Auto) 1.0 % (0.0-2.0) 03/30/17 07:10 Neut # (Auto) 3.1 K/uL (1.8-7.0) 03/30/17 07:10 Lymph # (Auto) 1.1 K/uL (1.0-4.3) 03/30/17 07:10 [place] # (Auto) 0.6 K/uL (0.0-0.8) 03/30/17 07:10 Eos # (Auto) 0.3 K/uL (0.0-0.7) 03/30/17 07:10 Baso # (Auto) 0.1 K/uL (0.0-0.2) 03/30/17 07:10 ESR 15 mm/hr (0-15) 03/26/17 06:11 PT 11.3 SECONDS (9.7-12.2) 03/24/17 11:16 INR 1.0 03/24/17 11:16 APTT 21 SECONDS (21-34) 03/24/17 11:16 Puncture Site Rr 03/25/17 05:01 pCO2 26 mm/Hg (35-45) L 03/25/17 05:01 pO2 379 mm/Hg (80-100) H 03/25/17 05:01 HCO3 23.1 mmol/L (21-28) 03/25/17 05:01 ABG pH 7.49 (7.35-7.45) H 03/25/17 05:01 ABG Total CO2 20.6 mmol/L (22-28) L 03/25/17 05:01 ABG O2 Saturation 98.3 % (95-98) H 03/25/17 05:01 ABG Base Excess -2.3 mmol/L (-2.0-3.0) L 03/25/17 05:01 ABG Hemoglobin 12.3 g/dL (11.7-17.4) 03/25/17 05:01 ABG Carboxyhemoglobin 0.3 % (0.5-1.5) L 03/25/17 05:01 POC ABG HHb (Measured) 1.7 % (0.0-5.0) 03/25/17 05:01 ABG Methemoglobin 1.2 % (0.0-3.0) 03/25/17 05:01 Booker Test Pos 03/25/17 05:01 ABG Potassium 3.7 mmol/L (3.6-5.2) 03/24/17 11:52 A-a O2 Difference 159.0 mm/Hg 03/25/17 05:01 Respiratory Index 0.4 03/25/17 05:01 Hgb O2 Saturation 96.8 % (95.0-98.0) 03/25/17 05:01 Sodium 130.0 mmol/l (132-148) L 03/24/17 11:52 Chloride 98.0 mmol/L (98-107) 03/24/17 11:52 Glucose 174 mg/dl (75-110) H 03/24/17 11:52 Lactate 2.8 mmol/L (0.7-2.1) H 03/24/17 11:52 Vent Mode Prvc 03/25/17 05:01 Mechanical Rate 20 03/25/17 05:01 FiO2 80.0 % 03/25/17 05:01 Tidal Volume 500 03/25/17 05:01 PEEP 5 03/25/17 05:01 Crit Value Called To Dr. pierson 03/24/17 11:25 Crit Value Called By Mushtaq stout rrt 03/24/17 11:25 Crit Value Read Back Y 03/24/17 11:25 Blood Gas Notified Time 1129 03/24/17 11:25 Sodium 131 mmol/L (132-148) L 03/30/17 07:10 Potassium 3.7 mmol/L (3.6-5.2) 03/30/17 07:10 Chloride 100 mmol/L (98-107) 03/30/17 07:10 Carbon Dioxide 23 mmol/L (22-30) 03/30/17 07:10 Anion Gap 11 (10-20) 03/30/17 07:10 BUN 11 mg/dL (9-20) 03/30/17 07:10 Creatinine 0.8 mg/dL (0.8-1.5) 03/30/17 07:10 Est GFR ( Amer) > 60 03/30/17 07:10 Est GFR (Non-Af Amer) > 60 03/30/17 07:10 POC Glucose (mg/dL) 86 mg/dL (65-110) 03/24/17 16:33 Random Glucose 82 mg/dL (75-110) 03/30/17 07:10 Calcium 8.3 mg/dl (8.6-10.4) L 03/30/17 07:10 Phosphorus 2.7 mg/dL (2.5-4.5) 03/26/17 06:11 Magnesium 2.1 mg/dL (1.6-2.3) 03/26/17 06:11 Total Bilirubin 0.7 mg/dL (0.2-1.3) 03/30/17 07:10 AST 46 U/L (17-59) 03/30/17 07:10 ALT 55 U/L (21-72) 03/30/17 07:10 Alkaline Phosphatase 34 U/L (38-126) L 03/30/17 07:10 Troponin I < 0.0120 ng/mL (0.00-0.120) 03/24/17 11:16 C-React Prot High Sens > 15.00 mg/L (1.00-3.00) H 03/26/17 06:11 Total Protein 5.9 g/dL (6.3-8.3) L 03/30/17 07:10 Albumin 3.2 g/dL (3.5-5.0) L 03/30/17 07:10 Globulin 2.7 gm/dL (2.2-3.9) 03/30/17 07:10 Albumin/Globulin Ratio 1.2 (1.0-2.1) 03/30/17 07:10 Procalcitonin 0.16 NG/ML (0.19-0.49) L 03/26/17 06:11 Arterial Blood Potassium 3.7 mmol/L (3.6-5.2) 03/24/17 11:52 Levetiracetam 30.5 mcg/mL 03/25/17 06:43 TB Test (QFT) Nil 0.05 IU/mL 03/27/17 07:36 TB Test Mitogen - Nil 7.01 IU/mL 03/27/17 07:36 TB Test TB - Nil 0.02 IU/mL 03/27/17 07:36 TB Test (QFT) Negative (Negative) 03/27/17 07:36 - Hospital Course Hospital Course: 76 year old male in status epi [employer] is brought to the ED by EMS for multiple seizures since 08:00 this morning. Per EMS, patient did not improve after initial versed, patient had an episode of Vtach as well. Attempted to intubate the patient 3 times without success, no stable on barak tube status post amiodarone, ativan and rocuronium. Further history is unable to be obtained due to patient's clinical condition. IN ER ANESTHESIOLOGIST TRIED INTUBATION AND A TRANSIENT ASYSTOLE WITH PRIOR V TACHY RESUSCITATED AND INTUBATED AND RESPONGING PAIN AND MOVES ALL EXT PT. WAS EXTUBATED WITH NO CARDIO=PULMONARY COMPROMISE MED WAS ADJUSTED FOR SZ F/U OUT PT FOR AFB Discharge Exam - Head Exam Head Exam: NORMAL INSPECTION Discharge Plan - Follow Up Plan Condition: SERIOUS Disposition: HOME/ ROUTINE
--- NOTE | 2017-04-01 15:21 | CP.PCM.PN ---
Subjective - Date & Time of Evaluation Date of Evaluation: 04/01/17 Time of Evaluation: 15:21 - Subjective Subjective: PATIENT WAS ADMITTED FOR STATUS EPILEPTICUS AND R/O TB; AAOX3; ON ROOM AIR DENIES CHEST PAIN SOB, NAUSEA OR VOMITING NO SIGN OF DISTRESS NOTED Objective - Vital Signs/Intake and Output Vital Signs (last 24 hours): Temp Pulse Resp BP Pulse Ox 97.8 F 83 20 102/66 96 04/01/17 07:39 04/01/17 11:14 04/01/17 07:39 04/01/17 11:14 04/01/17 07:39 Intake and Output: 04/01/17 04/01/17 06:59 18:59 Intake Total 900 Balance 900 - Medications Medications: Current Medications Aspirin (Aspirin Chewable) 81 mg PO DAILY [facility] Last Admin: 04/01/17 11:09 Dose: 81 mg Guaifenesin/Dextromethorphan (Robitussin Dm) 5 ml PO Q4H PRN PRN Reason: Cough Last Admin: 03/30/17 17:56 Dose: 5 ml Lamotrigine (Lamictal) 50 mg PO BID [facility] Last Admin: 04/01/17 11:09 Dose: 50 mg Levetiracetam (Keppra) 1,250 mg PO BID [facility] Last Admin: 04/01/17 11:09 Dose: 1,250 mg Losartan Potassium (Cozaar) 25 mg PO DAILY [facility] Last Admin: 04/01/17 11:16 Dose: Not Given Metoprolol Tartrate (Lopressor) 12.5 mg PO BID [facility] Last Admin: 04/01/17 11:16 Dose: Not Given Rosuvastatin Calcium (Crestor) 10 mg PO HS [facility] Last Admin: 03/31/17 22:18 Dose: 10 mg - Labs Labs: 03/30/17 07:10 03/30/17 07:10 PT 11.3 SECONDS (9.7-12.2) 03/24/17 11:16 INR 1.0 03/24/17 11:16 APTT 21 SECONDS (21-34) 03/24/17 11:16 Assessment and Plan - Assessment and Plan (Free Text) Assessment: PATIENT WAS SEEN AND EXAMINED AT THE BEDSIDE TB QF WAS NEGA SPUTUM X2 WERE NEG AND 3RD SPUTUM WAS PENDING DR DUSTIN WILKINSON F/U OUT PATIENT FOR THE RESULT AND CLEAR PATIENT FOR DC DISCUSS WITH DR BOOKER WHO AGREE AND CLEAR PATIENT FOR DC FOLLOW UP WITH DR BOOKER IN HIS OFFICE IN 1 WEEK --CALL FOR APPOINTMENT FOLLOW UP WITH DR CHAN IN 2 WEEK AT HER OFFICE ---CALL FOR APPOINTMENT AT YOUR APPOINTMENT FOLLOW UP WITH YOUR THRID SPUTUM TEST DONE AT THE HOSPITAL CONTINUE ALL YOUR HOME MEDICATION ORDER NEW PRESCRIPTION GIVEN METOPROLOL 12.5 MG BY MOUTH DAILY ACTIVITY TOLERATED CALL DR BOOKER OR GO TO THE EMERGENCY ROOM IF SYMPTOMS RETURN OR WORSENING DISCUSS WITH PATIENT AND PATIENT'S FAMILY WHO AGREE AND VERBALIZED UNDERSTANDING
[2017-04-01 16:15] VITALS: BP 109/69; PULSE 73; TEMP 97.6; O2SAT 95
== END 2017-04-01 17:08 | disposition home or self-care (01) | DRG 100 ==
LOC: C.ER 10:55 → C.9E 12:19 → C.9I 12:57 → C.6T 03-27 08:52 → C.5S 03-27 19:00
PROVIDERS: ADMIT Internal Medicine Cardiovascular Disease; ATTEND Internal Medicine Cardiovascular Disease
PROC: 5A1945Z Respiratory Ventilation, 24-96 Consecutive Hours (ICD-10-PCS; principal; 2017-03-24)
PROC: 0BH17EZ Insertion of Endotracheal Airway into Trachea, Via Natural or Artificial Opening (ICD-10-PCS; 2017-03-24)
DX: G40.101 Localization-related (focal) (partial) symptomatic epilepsy and epileptic syndromes with simple partial seizures, not intractable, with status epilepticus (principal); I46.9 Cardiac arrest, cause unspecified; J69.0 Pneumonitis due to inhalation of food and vomit; J96.01 Acute respiratory failure with hypoxia; I47.2 Ventricular tachycardia; J98.11 Atelectasis; H54.7 Unspecified visual loss; I10 Essential (primary) hypertension; E78.00 Pure hypercholesterolemia, unspecified; F01.50 Vascular dementia, unspecified severity, without behavioral disturbance, psychotic disturbance, mood disturbance, and anxiety; G83.84 Todd's paralysis (postepileptic); Z86.73 Personal history of transient ischemic attack (TIA), and cerebral infarction without residual deficits; Z87.891 Personal history of nicotine dependence